=== PATIENT | female | born 1985 | race Asian ===

== ENCOUNTER 2019-01-30 07:26 | Inpatient (IN) ==
[2019-01-30] MEDS ORDERED: OXYTOCIN 30 UNITS/500 ML BAG IV PRN (08:11)
[2019-01-30 08:42] LABS: Hematocrit (blood only) 34.9 % (37-47); Hemoglobin 12.5 g/dL (12.0-16.0); Mean Corpuscular Hemoglobin 33.1 pg (25-34); Mean Corpuscular Volume 92.3 fL (80-100); Mean Platelet Volume 10.4 fL (7.4-10.4); Platelet Count 224 K/uL (130-400); RDW Coefficient of Variation 13.6 % (11.5-14.5); RDW Standard Deviation 45.7 fL (36.4-46.3); Red Blood Count 3.78 M/uL (4.2-5.4); White Blood Count 8.55 K/uL (4.8-10.8)
[2019-01-30 08:43] LABS: Mean Corpuscular Hgb Conc 35.8 g/dL (32-36)
[2019-01-30] MEDS: LACTATED RINGER'S 1,000 ML IV PRN ×3 (08:47→19:49)
[2019-01-30] MEDS: OXYTOCIN 30 UNITS/500 ML BAG IV PRN (08:48)
--- NOTE | 2019-01-30 10:25 | History & Physical Report ---
Date of Service January 30, 2019 Assessment & Plan (1) Supervision of elderly primigravida: 34yo at 40.4 weeks GA. Present for IOL for post dates. 1. Fetus: Cat 1 2. Labor: S/p Jimenez. Will start oxytocin and AROM when able 3. GBS negative 4. Vitals: WNL 5. VSD: Will make peds aware (2) ventricular septal defect affecting antepartum care of mother: History of Present Illness Primary Care Provider: NO PCP 34yo at 40.4 weeks GA. Present for IOL for post dates. Denying regular contractions, VB, or LOF. Good FM. complicated by AMA and small VSD. 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 Beliefs That Will Affect Care: None marital status: Current Living Situation: Spouse Other Information That Helps Us Care for You: No Feels Safe at Home: Yes Safety Concerns: Feels Safe At This Time Smoking Status: Never smoker Hx Alcohol Use: No Hx Substance Use: No Physical Exam Constitutional: WD/WN, vitals as above Gastrointestinal (Abdomen): Percussion/Palpation: abdomen soft; abdomen nontender, no guarding and abdomen not rigid Genitourinary: no vaginal lesions, no adnexal mass normal external appearance OB Exam Abdomen: + vertex Manual OB Exam: + cervical dilation 3 cm, + cervical effacement 70% and + station -2 OB Exam Monitor Tracing: + external FHT monitor used, + external uterine monitor used, + category I and + normal FHT variability; no late decelerations present and no variable decelerations Results & Data Vital Signs (Past 12 Hours) Vital Signs Temp Pulse Resp BP 01/30/19 10:02 66 124/76 01/30/19 07:50 75 136/89 01/30/19 07:36 36.9 C 75 20 136/92 01/30/19 07:34 76 136/92 Code Status & VTE Plan VTE Prophylaxis Plan VTE Prophylaxis will be ordered: Yes
--- NOTE | 2019-01-30 14:28 | Labor Progress Brief Note ---
Date of Service January 30, 2019 Subjective Reason For Note: Routine Evaluation Current Pain Level(1-10): 3 Assessment & Plan (1) Supervision of elderly primigravida: 34yo at 40.4 weeks GA. Present for IOL for post dates. 1. Fetus: Cat 1 2. Labor: S/p Jimenez. Continue oxytocin. s/p AROM 3. GBS negative 4. Vitals: WNL 5. VSD: Will make peds aware (2) ventricular septal defect affecting antepartum care of mother: Physical Exam Genitourinary: Manual OB Exam: + cervical dilation 4 cm, + cervical effacement 70%, + station -2 and + amniotic fluid clear OB Exam Monitor Tracing: + external FHT monitor used, + external uterine monitor used, + category I and + normal FHT variability Results & Data Vital Signs (Past 12 Hours) Vital Signs Temp Pulse Resp BP 01/30/19 13:49 69 20 134/75 01/30/19 12:01 36.8 C 73 20 126/74 01/30/19 11:10 75 20 133/75 01/30/19 10:02 66 20 124/76 01/30/19 07:50 75 136/89 01/30/19 07:36 36.9 C 75 20 136/92 01/30/19 07:34 76 136/92
[2019-01-30] MEDS ORDERED: fentaNYL citrate 100 MCG/2 ML VIAL ONE (15:59)
[2019-01-30] MEDS ORDERED: BUPIVACAINE 0.25% 30 ML VIAL ONE (15:59)
[2019-01-30] MEDS ORDERED: ePHEDrine sulfate 50 MG/ML AMP ONE (15:59)
[2019-01-30] MEDS ORDERED: fentaNYL 2MCG/ML ROPIV 1.25MG/ML 100 ML BAG EPI ONE (16:00)
[2019-01-30] MEDS ORDERED: NALOXONE HCL 1 MG in SODIUM CHLORIDE 0.9% 1000ML 1,000 ML IV PRN (16:00)
[2019-01-30] MEDS ORDERED: ONDANSETRON INJ 2 MG/ML 2 ML VIAL IV PRN (16:00)
[2019-01-30] MEDS ORDERED: DiphenhydrAMINE HCL 50 MG/ML VIAL IV PRN (16:00)
[2019-01-30] MEDS ORDERED: NALOXONE HCL 0.4 MG/1 ML VIAL/CARP IV PRN (16:00)
[2019-01-30] MEDS ORDERED: NALBUPHINE HCL INJ 10 MG/ML AMP IV PRN (16:00)
[2019-01-30] MEDS ORDERED: ePHEDrine sulfate 50 MG/ML AMP IV PRN (16:00)
--- NOTE | 2019-01-30 16:07 | Anesthesiology Consultation ---
Date of Service January 30, 2019 Assessment & Plan (1) Encounter for pre-operative examination: Chart Review Chart Review: Patient NOT seen in Pre Admission Testing and Acceptable Risk for Labor Epidural Consults Requested none History Height/Weight Height: 5 ft 7 in Weight: 76.204 kg Allergies Allergy/AdvReac Type Severity Reaction Status Date / Time No Known Drug Allergies Allergy Unknown Verified 01/30/19 08:06 Medications Home Medications Medication Instructions Recorded Confirmed Last Taken aspirin 81 mg tablet,delayed 81 mg PO DAILY tab 11/21/18 01/30/19 01/27/19 release 1 tab PO DAILY 11/21/18 01/30/19 01/29/19 07:00 vitamin,calcium,oclqmtbl-gmnx-upmlj acid tablet Active Medications Generic Name Dose Route Start Last Admin Trade Name Freq PRN Reason Stop Dose Admin Lactated Ringer's 1,000 mls @ 125 mls/hr 01/30/19 08:11 01/30/19 15:49 Lr IV 02/01/19 08:10 999 mls/hr .Q8H PRN Infusion L&D Protocol Protocol Oxytocin 30 units in 500 mls @ 16 mls/hr 01/30/19 08:11 01/30/19 15:06 Pitocin IV 02/01/19 08:10 0.96 units/hr .Q24H PRN 16 mls/hr Labor Induction/Augmentation Titration Protocol 0.96 UNITS/HR Past Medical History Medical History No known health problems Exercise / Class Metabolic Activity II 4-5 Yardwork/Stairs/Walk up hill Past Family History Family History Mother Hypertension Past Surgical History Surgical History No history of previous surgery Past Anesthesia History No Hx of Anesthesia Complications and No Family Hx of Anesthesia Complications History of PONV No Hx of PONV and No Hx of Motion Sickness Social History Smoking Status: Never smoker Hx Alcohol Use: No Hx Substance Use: No substance use type: does not use Physical Exam Vital Signs Last Vital Signs Temp 36.6 C 01/30/19 15:05 Pulse 68 01/30/19 15:05 Resp 18 01/30/19 15:05 BP 125/84 01/30/19 15:05 Testing Laboratory Results 01/30/19 08:24
[2019-01-30] MEDS: fentaNYL 2MCG/ML ROPIV 1.25MG/ML 100 ML BAG EPI PRN ×2 (16:26→23:26)
--- NOTE | 2019-01-30 17:41 | Labor Progress Brief Note ---
Date of Service January 30, 2019 Subjective Reason For Note: Routine Evaluation Assessment & Plan (1) Supervision of elderly primigravida: 34yo at 40.4 weeks GA. Present for IOL for post dates. 1. Fetus: Cat 1 2. Labor: S/p Jimenez. Continue oxytocin. s/p AROM 3. GBS negative 4. Vitals: WNL 5. VSD: Will make peds aware (2) ventricular septal defect affecting antepartum care of mother: Physical Exam Genitourinary: OB Exam Abdomen: + vertex Manual OB Exam: + cervical dilation 4 cm, + cervical effacement 70%, + station -2 and + amniotic fluid clear OB Exam Monitor Tracing: + external FHT monitor used, + external uterine monitor used, + category I and + normal FHT variability; no late decelerations present and no variable decelerations Results & Data Vital Signs (Past 12 Hours) Vital Signs Temp Pulse Resp BP Pulse Ox 01/30/19 17:37 59 L 98 01/30/19 17:32 69 98 01/30/19 17:31 58 L 16 133/88 01/30/19 17:27 68 97 01/30/19 17:22 71 97 01/30/19 17:17 74 98 01/30/19 17:16 73 130/88 01/30/19 17:12 72 97 01/30/19 17:07 69 97 01/30/19 17:02 71 97 01/30/19 16:57 63 130/77 98 01/30/19 16:52 67 98 01/30/19 16:51 36.8 C 69 16 142/83 H 01/30/19 16:47 71 135/81 98 01/30/19 16:43 70 138/74 01/30/19 16:42 68 98 01/30/19 16:37 60 137/82 98 01/30/19 16:32 68 98 01/30/19 16:31 68 130/73 01/30/19 16:29 64 124/75 01/30/19 16:27 61 119/72 01/30/19 16:26 64 97 01/30/19 16:25 68 128/76 01/30/19 16:23 68 150/83 H 01/30/19 16:21 70 97 01/30/19 16:16 70 96 01/30/19 16:11 75 97 01/30/19 16:06 68 97 01/30/19 15:05 36.6 C 68 18 125/84 01/30/19 13:49 69 20 134/75 01/30/19 12:01 36.8 C 73 20 126/74 01/30/19 11:10 75 20 133/75 01/30/19 10:02 66 20 124/76 01/30/19 07:50 75 136/89 01/30/19 07:36 36.9 C 75 20 136/92 01/30/19 07:34 76 136/92
[2019-01-31] MEDS ORDERED: BUPIVACAINE 0.25% 30 ML VIAL ONE ×2 (03:01→09:45)
[2019-01-31] MEDS: LACTATED RINGER'S 1,000 ML IV PRN ×2 (03:37→10:00)
[2019-01-31] MEDS: fentaNYL 2MCG/ML ROPIV 1.25MG/ML 100 ML BAG EPI PRN (05:06)
--- NOTE | 2019-01-31 07:22 | Labor Progress Brief Note ---
Date of Service January 31, 2019 Subjective Reason For Note: Routine Evaluation Current Pain Level(1-10): 3 Assessment & Plan (1) : 34 yo AMA, here for IOL for Post dates 1. - SVE: 9.5cm, 100%, and +1 - Fetus: reassuring tracing Cat. 1 - Labor: S/P Jimenez. Continue Oxytocin. S/P AROM - GBS: negative - VS: WNL 2. - VSD (2) Supervision of elderly primigravida: 34yo at 40.4 weeks GA. Present for IOL for post dates. 1. Fetus: Cat 1 2. Labor: Progressing, S/p Jimenez. Continue oxytocin. s/p AROM 3. GBS negative 4. Vitals: WNL 5. VSD: Will make peds aware (3) ventricular septal defect affecting antepartum care of mother: Physical Exam Physical Exam: SVE: 9.5 cm. 100%, and +1 Baseline rate 150 accelerations present no late decelerations present and no variable decelerations Results & Data Vital Signs (Past 12 Hours) Vital Signs Temp Pulse Resp BP Pulse Ox 01/31/19 07:17 88 96 01/31/19 07:12 78 98 01/31/19 07:07 84 95 01/31/19 07:06 88 142/78 H 01/31/19 07:02 86 96 01/31/19 07:00 18 01/31/19 06:57 77 95 01/31/19 06:56 80 94 01/31/19 06:52 84 96 01/31/19 06:50 75 116/59 L 01/31/19 06:47 74 95 01/31/19 06:42 87 95 01/31/19 06:37 73 94 01/31/19 06:36 72 94 01/31/19 06:35 74 139/73 01/31/19 06:32 74 95 01/31/19 06:30 78 18 94 01/31/19 06:27 70 95 01/31/19 06:24 75 94 01/31/19 06:22 72 95 01/31/19 06:20 74 125/72 01/31/19 06:18 76 94 01/31/19 06:17 77 95 01/31/19 06:12 69 95 01/31/19 06:07 80 96 01/31/19 06:06 82 132/77 01/31/19 06:02 81 96 01/31/19 06:00 16 01/31/19 05:57 74 95 01/31/19 05:52 73 95 01/31/19 05:50 75 120/69 01/31/19 05:48 79 94 01/31/19 05:47 74 95 01/31/19 05:42 76 95 01/31/19 05:41 75 94 01/31/19 05:37 76 96 01/31/19 05:35 72 126/65 01/31/19 05:32 70 96 01/31/19 05:30 16 01/31/19 05:27 67 96 01/31/19 05:22 74 97 01/31/19 05:21 76 133/65 01/31/19 05:17 72 96 01/31/19 05:12 73 97 01/31/19 05:07 81 97 01/31/19 05:06 79 157/81 H 01/31/19 05:05 37.7 C H 01/31/19 05:02 79 97 01/31/19 05:00 16 01/31/19 04:57 86 96 01/31/19 04:52 78 97 01/31/19 04:51 88 137/85 01/31/19 04:47 85 98 01/31/19 04:42 88 98 01/31/19 04:37 82 98 01/31/19 04:35 86 152/91 H 01/31/19 04:32 87 97 01/31/19 04:30 16 01/31/19 04:27 84 96 01/31/19 04:22 83 96 01/31/19 04:20 80 140/85 01/31/19 04:17 80 96 01/31/19 04:12 82 97 01/31/19 04:07 79 96 01/31/19 04:06 79 139/85 01/31/19 04:02 77 96 01/31/19 04:00 16 01/31/19 03:57 77 96 01/31/19 03:52 77 96 01/31/19 03:50 75 145/82 H 01/31/19 03:47 73 96 01/31/19 03:42 72 97 01/31/19 03:37 77 96 01/31/19 03:35 77 148/89 H 01/31/19 03:32 78 96 01/31/19 03:30 82 18 146/81 H 01/31/19 03:27 71 97 01/31/19 03:24 75 144/79 H 01/31/19 03:22 80 97 01/31/19 03:19 72 141/79 H 01/31/19 03:17 69 98 01/31/19 03:14 71 129/66 01/31/19 03:12 75 98 01/31/19 03:09 66 125/62 01/31/19 03:07 64 97 01/31/19 03:06 37.0 C 01/31/19 03:04 84 143/75 H 01/31/19 03:03 89 94 01/31/19 03:02 78 97 01/31/19 03:01 72 133/70 01/31/19 03:00 20 01/31/19 02:57 69 97 01/31/19 02:52 72 97 01/31/19 02:47 70 124/60 99 01/31/19 02:42 68 98 01/31/19 02:40 62 121/67 01/31/19 02:37 75 98 01/31/19 02:32 76 98 01/31/19 02:31 74 161/91 H 01/31/19 02:30 18 01/31/19 02:27 66 98 01/31/19 02:22 66 98 01/31/19 02:17 82 97 01/31/19 02:16 77 152/76 H 01/31/19 02:12 71 96 01/31/19 02:07 64 96 01/31/19 02:02 63 96 01/31/19 02:01 64 130/66 01/31/19 02:00 18 01/31/19 01:57 70 96 01/31/19 01:52 71 96 01/31/19 01:47 58 L 96 01/31/19 01:46 72 132/72 01/31/19 01:42 67 96 01/31/19 01:37 63 96 01/31/19 01:32 69 98 01/31/19 01:30 66 18 140/77 01/31/19 01:27 67 97 01/31/19 01:22 63 97 01/31/19 01:17 64 99 01/31/19 01:15 70 126/66 01/31/19 01:12 69 97 01/31/19 01:07 36.9 C 74 98 01/31/19 01:02 74 99 01/31/19 01:00 70 16 128/66 01/31/19 00:57 65 99 01/31/19 00:52 78 99 01/31/19 00:47 75 99 01/31/19 00:46 75 127/75 01/31/19 00:42 88 97 01/31/19 00:37 71 97 01/31/19 00:32 73 97 01/31/19 00:31 68 137/82 01/31/19 00:30 16 01/31/19 00:27 75 97 01/31/19 00:22 74 97 01/31/19 00:17 73 98 01/31/19 00:15 63 138/80 01/31/19 00:12 69 97 01/31/19 00:07 76 98 01/31/19 00:05 68 133/87 01/31/19 00:02 67 98 01/31/19 00:00 16 01/30/19 23:57 67 97 01/30/19 23:52 69 98 01/30/19 23:47 69 98 01/30/19 23:46 70 145/86 H 01/30/19 23:42 64 98 01/30/19 23:37 78 98 01/30/19 23:32 68 156/82 H 98 01/30/19 23:30 18 01/30/19 23:27 68 99 01/30/19 23:22 69 98 01/30/19 23:17 62 98 01/30/19 23:16 61 141/79 H 01/30/19 23:12 68 98 01/30/19 23:07 56 L 137/76 99 01/30/19 23:05 36.9 C 01/30/19 23:02 69 99 01/30/19 23:00 62 18 133/69 01/30/19 22:57 62 99 01/30/19 22:52 63 99 01/30/19 22:48 62 129/70 01/30/19 22:47 62 98 01/30/19 22:42 66 97 01/30/19 22:37 59 L 97 01/30/19 22:32 72 97 01/30/19 22:31 60 164/88 H 01/30/19 22:30 18 01/30/19 22:27 70 98 01/30/19 22:22 73 99 01/30/19 22:17 81 98 01/30/19 22:16 86 112/84 01/30/19 22:12 80 97 01/30/19 22:07 81 98 01/30/19 22:02 72 97 01/30/19 22:01 73 138/89 01/30/19 22:00 20 01/30/19 21:57 65 99 01/30/19 21:52 79 97 01/30/19 21:47 71 98 01/30/19 21:46 79 156/84 H 01/30/19 21:42 79 98 01/30/19 21:37 78 98 01/30/19 21:32 85 97 01/30/19 21:30 65 18 144/89 H 01/30/19 21:27 71 98 01/30/19 21:22 71 99 01/30/19 21:17 73 139/87 97 01/30/19 21:12 63 98 01/30/19 21:10 36.6 C 01/30/19 21:07 68 97 01/30/19 21:02 65 97 01/30/19 21:00 62 18 135/74 01/30/19 20:57 62 97 01/30/19 20:52 62 98 01/30/19 20:47 73 98 01/30/19 20:46 66 123/70 01/30/19 20:42 65 98 01/30/19 20:37 61 99 01/30/19 20:32 61 98 01/30/19 20:31 63 123/78 01/30/19 20:30 20 01/30/19 20:27 56 L 99 01/30/19 20:22 65 98 01/30/19 20:17 64 98 01/30/19 20:16 66 144/83 H 01/30/19 20:12 68 98 01/30/19 20:07 65 98 01/30/19 20:02 64 149/73 H 98 01/30/19 20:00 20 01/30/19 19:57 66 99 01/30/19 19:52 68 98 01/30/19 19:47 73 121/80 98 01/30/19 19:42 67 97 01/30/19 19:37 69 99 01/30/19 19:32 75 99 01/30/19 19:31 67 136/81 01/30/19 19:30 18 01/30/19 19:27 68 98 01/30/19 19:22 75 97
--- NOTE | 2019-01-31 10:28 | Anesthesiology Progress Note ---
Date of Service January 31, 2019 at 10:24 am, pt epidural was bolused w/12 ml 0.17% bupivacaine + 100 mcgs fentanyl; using incremental aspiration and injection. neg. aspiration.vital signs stable. Physical Exam Vital Signs: Last Vital Signs Temp 37.6 C H 01/31/19 09:03 Pulse 85 01/31/19 10:22 Resp 16 01/31/19 09:45 BP 122/58 L 01/31/19 10:20 Pulse Ox 95 01/31/19 10:22 Results & Data Medications Administered Lactated Ringer's (Lr) 1,000 mls @ 125 mls/hr IV .Q8H PRN; Protocol PRN Reason: L&D Protocol Stop: 02/01/19 08:10 Last Infusion: 01/31/19 08:05 Dose: 125 mls/hr Documented by: [id number] Infusion: 01/31/19 07:50 Dose: 999 mls/hr Documented by: [id number] Admin: 01/31/19 03:37 Dose: 125 mls/hr Documented by: [id number] Infusion: 01/31/19 03:37 Dose: 125 mls/hr Documented by: [id number] Admin: 01/30/19 19:49 Dose: 125 mls/hr Documented by: [id number] Infusion: 01/30/19 19:03 Dose: 125 mls/hr Documented by: [id number] Infusion: 01/30/19 18:40 Dose: 125 mls/hr Documented by: [id number] Infusion: 01/30/19 16:30 Dose: 125 mls/hr Documented by: [id number] Infusion: 01/30/19 15:49 Dose: 999 mls/hr Documented by: [id number] Admin: 01/30/19 15:49 Dose: 125 mls/hr Documented by: [id number] Infusion: 01/30/19 15:49 Dose: 125 mls/hr Documented by: [id number] Admin: 01/30/19 08:47 Dose: 125 mls/hr Documented by: [id number] Oxytocin (Pitocin) 30 units in 500 mls @ 2 mls/hr IV .Q24H PRN; Protocol PRN Reason: Labor Induction/Augmentation Stop: 02/01/19 08:10 Last Titration: 01/31/19 08:33 Dose: 0.12 units/hr, 2 mls/hr Documented by: [id number] Titration: 01/31/19 07:50 Dose: 0 units/hr, 0 mls/hr Documented by: [id number] Titration: 01/31/19 00:40 Dose: 1.8 units/hr, 30 mls/hr Documented by: [id number] Titration: 01/31/19 00:05 Dose: 1.68 units/hr, 28 mls/hr Documented by: [id number] Titration: 01/30/19 23:20 Dose: 1.56 units/hr, 26 mls/hr Documented by: [id number] Titration: 01/30/19 22:35 Dose: 1.44 units/hr, 24 mls/hr Documented by: [id number] Titration: 01/30/19 22:00 Dose: 1.32 units/hr, 22 mls/hr Documented by: [id number] Titration: 01/30/19 18:35 Dose: 1.2 units/hr, 20 mls/hr Documented by: [id number] Titration: 01/30/19 18:04 Dose: 1.08 units/hr, 18 mls/hr Documented by: [id number] Titration: 01/30/19 15:06 Dose: 0.96 units/hr, 16 mls/hr Documented by: [id number] Titration: 01/30/19 13:00 Dose: 0.84 units/hr, 14 mls/hr Documented by: [id number] Titration: 01/30/19 12:00 Dose: 0.72 units/hr, 12 mls/hr Documented by: [id number] Titration: 01/30/19 11:00 Dose: 0.6 units/hr, 10 mls/hr Documented by: [id number] Titration: 01/30/19 10:30 Dose: 0.48 units/hr, 8 mls/hr Documented by: [id number] Titration: 01/30/19 10:00 Dose: 0.36 units/hr, 6 mls/hr Documented by: [id number] Titration: 01/30/19 09:30 Dose: 0.24 units/hr, 4 mls/hr Documented by: [id number] Admin: 01/30/19 08:48 Dose: 0.12 units/hr, 2 mls/hr Documented by: [id number] Cosigned by: [id number] Ropivacaine (Epidural (L&D)) 100 ml EPI PRN PRN; Protocol PRN Reason: Pain R/T Labor Stop: 01/31/19 15:59 Last Admin: 01/31/19 05:06 Dose: 100 ml Documented by: [id number] Cosigned by: [id number] Admin: 01/30/19 23:26 Dose: 100 ml Documented by: [id number] Cosigned by: [id number] Admin: 01/30/19 16:26 Dose: 100 ml Documented by: [id number] Cosigned by: [id number]
[2019-01-31] MEDS: fentaNYL citrate 100 MCG/2 ML VIAL ONE ×2 (10:30→10:34)
--- NOTE | 2019-01-31 14:39 | Obstetrical Progress Note ---
Date of Service January 31, 2019 Subjective Patient has been pushing since approx 1pm. She took some time to learn to adequately push. at bedside and helpful. FHT Cat 1 [place] 2-3 station 2+ Continue pushing. Results & Data Vital Signs (Past 12 Hours) Vital Signs Temp Pulse Resp BP Pulse Ox 01/31/19 14:24 37.1 C 22 01/31/19 14:20 112 H 117/57 L 01/31/19 14:10 96 H 89 L 01/31/19 14:09 115 H 86 L 01/31/19 14:05 104 H 120/56 L 94 01/31/19 14:00 113 H 85 L 01/31/19 13:59 115 H 94 01/31/19 13:54 92 H 92 01/31/19 13:51 90 128/64 01/31/19 13:48 81 92 01/31/19 13:43 91 H 90 01/31/19 13:42 136 H 90 01/31/19 13:38 96 H 93 01/31/19 13:37 79 91 01/31/19 13:35 88 135/61 01/31/19 13:33 91 H 94 01/31/19 13:28 95 H 93 01/31/19 13:27 71 90 01/31/19 13:23 99 H 92 01/31/19 13:21 80 137/60 01/31/19 13:19 78 86 L 01/31/19 13:17 74 95 01/31/19 13:14 70 72 L 01/31/19 13:12 77 97 01/31/19 13:07 92 H 95 01/31/19 13:06 83 87 L 01/31/19 13:02 88 97 01/31/19 12:57 90 95 01/31/19 12:56 91 H 89 L 01/31/19 12:52 81 137/65 96 01/31/19 12:47 79 96 01/31/19 12:42 84 95 01/31/19 12:37 76 95 01/31/19 12:36 76 127/60 01/31/19 12:32 78 96 01/31/19 12:30 37.4 C 18 01/31/19 12:27 76 95 01/31/19 12:22 93 H 95 01/31/19 12:20 81 135/70 10/09/19 12:17 99 H 96 01/31/19 12:12 87 95 01/31/19 12:07 83 95 01/31/19 12:05 83 124/65 01/31/19 12:02 79 95 01/31/19 11:57 76 95 01/31/19 11:52 73 96 01/31/19 11:50 73 124/64 01/31/19 11:47 73 95 01/31/19 11:42 78 96 01/31/19 11:37 83 96 01/31/19 11:36 37.7 C H 18 01/31/19 11:35 79 131/71 01/31/19 11:32 76 94 01/31/19 11:27 75 95 01/31/19 11:22 74 94 01/31/19 11:21 68 126/62 01/31/19 11:17 72 97 01/31/19 11:12 72 95 01/31/19 11:07 67 96 01/31/19 11:05 64 121/60 01/31/19 11:02 70 95 01/31/19 10:57 77 93 01/31/19 10:52 74 95 01/31/19 10:50 74 132/64 01/31/19 10:47 73 95 01/31/19 10:42 81 95 01/31/19 10:37 74 132/62 94 01/31/19 10:32 80 94 01/31/19 10:27 79 94 01/31/19 10:22 85 95 01/31/19 10:20 79 122/58 L 01/31/19 10:17 77 95 01/31/19 10:12 80 94 01/31/19 10:07 84 94 01/31/19 10:05 83 124/62 01/31/19 10:02 82 94 01/31/19 09:57 81 94 01/31/19 09:52 81 94 01/31/19 09:50 77 122/61 01/31/19 09:47 81 94 01/31/19 09:45 16 01/31/19 09:42 82 95 01/31/19 09:37 80 95 01/31/19 09:36 79 94 01/31/19 09:35 76 116/59 L 01/31/19 09:32 79 96 01/31/19 09:27 75 95 01/31/19 09:22 77 95 01/31/19 09:21 76 113/58 L 01/31/19 09:17 75 95 01/31/19 09:12 79 96 01/31/19 09:07 78 95 01/31/19 09:06 78 119/63 01/31/19 09:03 37.6 C H 20 01/31/19 09:02 78 96 01/31/19 08:57 84 96 01/31/19 08:52 85 96 01/31/19 08:51 83 145/78 H 01/31/19 08:47 80 96 01/31/19 08:42 84 96 01/31/19 08:37 84 97 01/31/19 08:35 76 129/76 01/31/19 08:33 20 01/31/19 08:32 88 96 01/31/19 08:27 80 96 01/31/19 08:22 84 95 01/31/19 08:20 81 134/75 01/31/19 08:17 80 96 01/31/19 08:12 81 96 01/31/19 08:07 78 97 01/31/19 08:05 76 127/74 01/31/19 08:02 82 98 01/31/19 07:57 79 99 01/31/19 07:52 77 99 01/31/19 07:51 78 131/85 01/31/19 07:47 75 96 01/31/19 07:45 84 92 01/31/19 07:42 75 95 01/31/19 07:37 77 96 01/31/19 07:35 79 123/68 01/31/19 07:32 75 96 01/31/19 07:30 83 94 01/31/19 07:27 84 96 01/31/19 07:22 83 96 01/31/19 07:20 88 135/77 01/31/19 07:17 88 96 01/31/19 07:12 78 98 01/31/19 07:07 84 95 01/31/19 07:06 88 142/78 H 01/31/19 07:02 86 96 01/31/19 07:00 18 01/31/19 06:57 77 95 01/31/19 06:56 80 94 01/31/19 06:52 84 96 01/31/19 06:50 75 116/59 L 01/31/19 06:47 74 95 01/31/19 06:42 87 95 01/31/19 06:37 73 94 01/31/19 06:36 72 94 01/31/19 06:35 74 139/73 01/31/19 06:32 74 95 01/31/19 06:30 78 18 94 01/31/19 06:27 70 95 01/31/19 06:24 75 94 01/31/19 06:22 72 95 01/31/19 06:20 74 125/72 01/31/19 06:18 76 94 01/31/19 06:17 77 95 01/31/19 06:12 69 95 01/31/19 06:07 80 96 01/31/19 06:06 82 132/77 01/31/19 06:02 81 96 01/31/19 06:00 16 01/31/19 05:57 74 95 01/31/19 05:52 73 95 01/31/19 05:50 75 120/69 01/31/19 05:48 79 94 01/31/19 05:47 74 95 01/31/19 05:42 76 95 01/31/19 05:41 75 94 01/31/19 05:37 76 96 01/31/19 05:35 72 126/65 01/31/19 05:32 70 96 01/31/19 05:30 16 01/31/19 05:27 67 96 01/31/19 05:22 74 97 01/31/19 05:21 76 133/65 01/31/19 05:17 72 96 01/31/19 05:12 73 97 01/31/19 05:07 81 97 01/31/19 05:06 79 157/81 H 01/31/19 05:05 37.7 C H 01/31/19 05:02 79 97 01/31/19 05:00 16 01/31/19 04:57 86 96 01/31/19 04:52 78 97 01/31/19 04:51 88 137/85 01/31/19 04:47 85 98 01/31/19 04:42 88 98 01/31/19 04:37 82 98 01/31/19 04:35 86 152/91 H 01/31/19 04:32 87 97 01/31/19 04:30 16 01/31/19 04:27 84 96 01/31/19 04:22 83 96 01/31/19 04:20 80 140/85 01/31/19 04:17 80 96 01/31/19 04:12 82 97 01/31/19 04:07 79 96 01/31/19 04:06 79 139/85 01/31/19 04:02 77 96 01/31/19 04:00 16 01/31/19 03:57 77 96 01/31/19 03:52 77 96 01/31/19 03:50 75 145/82 H 01/31/19 03:47 73 96 01/31/19 03:42 72 97 01/31/19 03:37 77 96 01/31/19 03:35 77 148/89 H 01/31/19 03:32 78 96 01/31/19 03:30 82 18 146/81 H 01/31/19 03:27 71 97 01/31/19 03:24 75 144/79 H 01/31/19 03:22 80 97 01/31/19 03:19 72 141/79 H 01/31/19 03:17 69 98 01/31/19 03:14 71 129/66 01/31/19 03:12 75 98 01/31/19 03:09 66 125/62 01/31/19 03:07 64 97 01/31/19 03:06 37.0 C 01/31/19 03:04 84 143/75 H 01/31/19 03:03 89 94 01/31/19 03:02 78 97 01/31/19 03:01 72 133/70 01/31/19 03:00 20 01/31/19 02:57 69 97 01/31/19 02:52 72 97 01/31/19 02:47 70 124/60 99 01/31/19 02:42 68 98 01/31/19 02:40 62 121/67 PG Care Time/CCT Total # of Minutes Spent Total Time Spent with Patient: Total time spent is greater than 50% in coordination of care (as documented) at patient's floor/unit and/or counseling patient:
[2019-01-31] MEDS: OXYTOCIN 30 UNITS/500 ML BAG IV PRN (15:19)
[2019-01-31] MEDS: METHYLERGONOVINE MALEATE 0.2 MG/ML AMP IM PRN ×2 (16:39→17:55)
[2019-01-31] MEDS ORDERED: TRANEXAMIC ACID 100 MG/ML 10 ML VIAL ONE ×2 (16:42→17:43)
[2019-01-31] MEDS ORDERED: SODIUM CHLORIDE 0.9% 250 ML IV PRN (16:42)
[2019-01-31] MEDS ORDERED: CARBOPROST TROMETHAMINE 250 MCG/ML AMPUL ONE (16:42)
[2019-01-31] MEDS ORDERED: miSOPROStoL 200 MCG TAB PR ONE (16:48)
[2019-01-31] MEDS ORDERED: TRANEXAMIC ACID 1,000 MG in 0.9 % SODIUM CHLORIDE 100 ML IV STA ×2 (16:48→17:41)
[2019-01-31] MEDS ORDERED: CARBOPROST TROMETHAMINE 250 MCG/ML AMPUL IM PRN (16:48)
[2019-01-31] MEDS ORDERED: fentaNYL 2MCG/ML ROPIV 1.25MG/ML 100 ML BAG EPI ONE (17:05)
[2019-01-31 17:36] LABS: Partial Thromboplastin Ratio 1.2; Prothrombin Time 10.5 Seconds (9.0-12.0)
[2019-01-31] MEDS ORDERED: METHYLERGONOVINE MALEATE 0.2 MG/ML AMP IM STA (17:42)
[2019-01-31] MEDS ORDERED: TRANEXAMIC ACID 1,000 MG in 0.9 % SODIUM CHLORIDE 100 ML IV ONE (17:42)
--- NOTE | 2019-01-31 17:51 | Delivery Summary ---
Vaginal Delivery Summary Date of Service January 31, 2019 Vaginal Delivery Summary Vaginal Delivery Summary: Pre-delivery diagnoses: 34yo @ 40 5/7, VSD, IOL for post dates Post-delivery diagnoses: same + severe hemorrhage, manual extraction of placenta Procedure: spontaneous vaginal delivery, manual extraction of placenta, insertion of Bakri balloon, repair of 2nd degree perineal laceration Surgeon: Anais Colin DO Complications: none Findings: Viable male . Apgars: 8/9. Weight pending, please see nursery records. Estimated blood loss: 2765ml as measured by weight Description of delivery: The patient progressed to complete with epidural anesthesia. She then began to push. She pushed for 3 hours. She spontaneously vaginally delivered a viable from the cephalic presentation. The head delivered in AMY position. The anterior shoulder delivered, followed by the posterior shoulder, followed by the body. No nuchal cord. The baby was placed on mother's abdomen and a spontaneous cry was heard. The cord was doubly clamped and cut. A segment was retained for cord gases. Cord blood was obtained. Gentle traction was used to attempt to deliver the placenta, but umbilical cord avulsed. Manual extraction of placenta was performed. This required multiple attempts, as placenta was adhered to the uterine wall. Placenta was gently teased out of the uterus and sent to path. Large banjo curette was used to perform gentle curettage of the uterus, no tissue retrieved. The uterus was swept manually with bushing and broach operator's hand, and no retained placental fragments were palpated. The vagina was swept of clots and debris. IV pitocin was given at 999ml/hr. A large amount of clots were expressed from the uterus and swept from the vagina. The uterus was boggy and atonic, therefore methergine, hemabate, and cytotec were given. The uterus began to firm, but was still bleeding. Therefore, Bakri balloon was inserted into the uterus, and filled with 500ml sterile saline. Collection bag was attached to the bakri balloon to monitor blood loss. Unmatched blood was ordered STAT, also cryo, as well as stat labs: coags, fibrinogen, CBC, CMP. Anesthesia and another OBGYN physician were called to bedside due to severity of case. The cervix, vagina, and perineum were inspected and a 2nd degree laceration was noted and repaired with 3-0 vicryl in standard fashion. After placement of Bakri balloon and repair of (minimally oozing) 2nd degree perineal lac, there was excellent hemostasis. Jimenez catheter was placed in the bladder to monitor urine output. A 2nd IV line was established. Baby was taken to the nursery with father. Sponge, needle and instrument counts were correct x 2. UPDATE: At approx 1.5 h after delivery, there is scant blood on the pad underneath patient. There is 75cc blood in the Bakri balloon collection bag. The fundus is firm. Patient is feeling weak. Have ordered 2u PRBC, 2u cryo, and have given 2 doses of TXA. 2 doses methergine. 1 dose hemabate. 1 dose 1000ml cytotec [place]. DO MILTON ChowdhuryG
[2019-01-31 17:52] LABS: Alanine Aminotransferase < 6 U/L (12-78); Albumin Level 2.1 gm/dl (3.4-5.0); Aspartate Aminotransferase 24 U/L (15-37); BUN Creatinine Ratio 11.7 (10-20); Blood Urea Nitrogen 15 mg/dl (7-18); Calcium 8.1 mg/dl (8.5-10.1); Carbon Dioxide 17 mmol/L (21-32); Chloride 110 mmol/L (98-107); Creatinine Clr Calc Pharmacy 67.4 ml/min; Est GFR (African American) 65.2; Est GFR (Non-African American) 56.2; Glucose 91 mg/dl (70-99); Potassium 3.7 mmol/L (3.5-5.1); Sodium 138 mmol/L (136-145)
[2019-01-31 17:55] LABS: Albumin Globulin Ratio 0.7 (0.9-2); Alkaline Phosphatase 173 U/L (45-117); Bilirubin,Total 0.8 mg/dl (0.2-1); Globulin 3.2 gm/dl (2.5-4.0); Hemoglobin 10.1 g/dL (12.0-16.0); Mean Corpuscular Hemoglobin 31.9 pg (25-34); Mean Corpuscular Hgb Conc 33.7 g/dL (32-36); Mean Corpuscular Volume 94.6 fL (80-100); Mean Platelet Volume 10.5 fL (7.4-10.4); Platelet Count 179 K/uL (130-400); RDW Coefficient of Variation 13.6 % (11.5-14.5); RDW Standard Deviation 47.2 fL (36.4-46.3); Red Blood Count 3.17 M/uL (4.2-5.4); Total Protein 5.3 gm/dl (6.4-8.2); White Blood Count 24.34 K/uL (4.8-10.8)
[2019-01-31 18:06] LABS: Fibrinogen 451 mg/dl (184-400)
[2019-01-31 18:09] LABS: D Dimer > 35200 ug/L FEU (0-500)
[2019-01-31 18:26] LABS: Hematocrit (blood only) 29.4 % (37-47); Hemoglobin 9.7 g/dL (12.0-16.0); Mean Corpuscular Hemoglobin 32.1 pg (25-34); Mean Corpuscular Volume 97.4 fL (80-100); Mean Platelet Volume 10.4 fL (7.4-10.4); Platelet Count 167 K/uL (130-400); RDW Coefficient of Variation 13.9 % (11.5-14.5); Red Blood Count 3.02 M/uL (4.2-5.4); White Blood Count 28.71 K/uL (4.8-10.8)
--- NOTE | 2019-01-31 18:35 | Obstetrical Progress Note ---
Date of Service January 31, [address] Bernal (ice seller) to transfer patient to ICU. She currently has 100cc of red blood in Bakri balloon collection bag. Uterine fundus firm. Scant blood on pad underneath patient. Small amount of dark colored urine in dukes bag. Vital Signs Temp 36.6 C 01/31/19 18:23 Pulse 67 01/31/19 18:31 Resp 22 01/31/19 18:23 BP 99/70 L 01/31/19 18:31 Pulse Ox 100 01/31/19 18:28 Intake & Output 01/30/19 01/31/19 01/31/19 18:59 06:59 18:59 Intake Total 1951.217 / 3107.733 1156.516 / 3107.733 1984.017 / 1984.017 Output Total 1350 / 3600 2250 / 3600 700 / 700 Balance 601.217 / -492.267 -1093.484 / -920.877 4442.017 / 1285.017 Weight 168 lb Intake: IV 195.217 / 3107.733 1156.516 / 3107.733 1861.017 / 1861.017 Lr 1,000 ml @ 125 mls/hr IV . 1832.650 / 2854.167 1021.517 / 2854.167 1614.583 / 1614.583 Q8H PRN Rx#:[id number] PITOCIN 30 units In 500 ml @ 0. 118.567 / 253.566 134.999 / 253.566 246.434 / 246.434 72 UNITS/HR 12 mls/hr IV .Q24H PRN Rx#:[id number] Intake (Blood Product) Amt 124 / 124 Cryoprecipitate Unit 124 / 124 [id number] Packed Cells, Leukoreduced 2 0 / 0 Unit [id number] Output: Urine 1350 / 1350 Urine Amount (Catheter) 2250 / 2250 700 / 700 Straight 2250 / 2250 700 / 700 Labs 01/30/19 01/30/19 01/31/19 08:24 08:24 17:12 WBC 8.55 24.34 H RBC 3.78 L 3.17 L Hgb 12.5 10.1 L Hct 34.9 L 30.0 L MCV 92.3 94.6 MCH 33.1 31.9 MCHC 35.8 33.7 RDW Std Deviation 45.7 47.2 H RDW Coeff of Tanna 13.6 13.6 Plt Count 224 179 MPV 10.4 10.5 H PT INR APTT PTT Ratio Fibrinogen D-Dimer Sodium Potassium Chloride Carbon Dioxide Anion Gap BUN Creatinine Est Cr Clr Drug Dosing Est GFR ( Amer) Est GFR (Non-Af Amer) BUN/Creatinine Ratio Glucose Calcium Total Bilirubin AST ALT Alkaline Phosphatase Lactate Dehydrogenase Total Protein Albumin Globulin Albumin/Globulin Ratio Blood Type B Positive Antibody Screen NEGATIVE Crossmatch See Detail 01/31/19 01/31/19 01/31/19 17:12 17:12 17:12 WBC RBC Hgb Hct MCV MCH MCHC RDW Std Deviation RDW Coeff of Tanna Plt Count MPV PT 10.5 INR 1.0 APTT 33.0 H PTT Ratio 1.2 Fibrinogen 451 H D-Dimer > 80110 H* Sodium Potassium Chloride Carbon Dioxide Anion Gap BUN Creatinine Est Cr Clr Drug Dosing Est GFR ( Amer) Est GFR (Non-Af Amer) BUN/Creatinine Ratio Glucose Calcium Total Bilirubin AST ALT Alkaline Phosphatase Lactate Dehydrogenase 268 H Total Protein Albumin Globulin Albumin/Globulin Ratio Blood Type Antibody Screen Crossmatch 01/31/19 01/31/19 17:12 18:18 WBC 28.71 H RBC 3.02 L Hgb 9.7 L Hct 29.4 L MCV 97.4 MCH 32.1 MCHC 33.0 RDW Std Deviation 49.0 H RDW Coeff of Tanna 13.9 Plt Count 167 MPV 10.4 PT INR APTT PTT Ratio Fibrinogen D-Dimer Sodium 138 Potassium 3.7 Chloride 110 H Carbon Dioxide 17 L Anion Gap 11.0 BUN 15 Creatinine 1.24 H Est Cr Clr Drug Dosing 67.4 Est GFR ( Amer) 65.2 Est GFR (Non-Af Amer) 56.2 BUN/Creatinine Ratio 11.7 Glucose 91 Calcium 8.1 L Total Bilirubin 0.8 AST 24 ALT < 6 L Alkaline Phosphatase 173 H Lactate Dehydrogenase Total Protein 5.3 L Albumin 2.1 L Globulin 3.2 Albumin/Globulin Ratio 0.7 L Blood Type Antibody Screen Crossmatch Results & Data Vital Signs (Past 12 Hours) Vital Signs Temp Pulse Resp BP Pulse Ox 01/31/19 18:28 140 H 100 01/31/19 18:23 36.6 C 147 H 22 93/62 L 100 01/31/19 18:21 148 H 93/62 L 01/31/19 18:18 154 H 100 01/31/19 18:13 152 H 100 01/31/19 18:12 36.8 C 153 H 22 100/60 100 01/31/19 18:08 151 H 100 01/31/19 18:03 155 H 79 L 01/31/19 18:00 155 H 22 100/60 100 01/31/19 17:58 157 H 100 01/31/19 17:55 149 H 83 L 01/31/19 17:53 151 H 97 01/31/19 17:50 36.6 C 120 H 24 120/72 99 01/31/19 17:48 150 H 97 01/31/19 17:46 149 H 85 L 01/31/19 17:45 36.8 C 120 H 22 94/60 L 97 01/31/19 17:43 143 H 97 01/31/19 17:38 145 H 99 01/31/19 17:36 127 H 169/112 H 01/31/19 17:31 36.6 C 133 H 22 139/74 01/31/19 17:30 36.6 C 01/31/19 17:27 151 H 240/122 H 01/31/19 17:25 220/159 H 01/31/19 17:18 134 H 106/74 01/31/19 17:13 117 H 106/69 01/31/19 17:11 114 H 107/71 01/31/19 17:03 100 H 103/60 01/31/19 16:58 105/68 01/31/19 16:53 114 H 96/68 L 01/31/19 16:50 116 H 91/66 L 01/31/19 16:48 130 H 89/52 L 01/31/19 16:35 126 H 127/92 01/31/19 16:21 112 H 131/89 01/31/19 16:08 107 H 134/78 01/31/19 15:53 99 H 159/87 H 01/31/19 15:35 37.0 C 22 01/31/19 15:20 90 143/66 H 01/31/19 15:07 84 138/63 01/31/19 14:51 86 139/68 01/31/19 14:24 37.1 C 22 01/31/19 14:20 112 H 117/57 L 01/31/19 14:10 96 H 89 L 01/31/19 14:09 115 H 86 L 01/31/19 14:05 104 H 120/56 L 94 01/31/19 14:00 113 H 85 L 01/31/19 13:59 115 H 94 01/31/19 13:54 92 H 92 01/31/19 13:51 90 128/64 01/31/19 13:48 81 92 01/31/19 13:43 91 H 90 01/31/19 13:42 136 H 90 01/31/19 13:38 96 H 93 01/31/19 13:37 79 91 01/31/19 13:35 88 135/61 01/31/19 13:33 91 H 94 01/31/19 13:28 95 H 93 01/31/19 13:27 71 90 01/31/19 13:23 99 H 92 01/31/19 13:21 80 137/60 01/31/19 13:19 78 86 L 01/31/19 13:17 74 95 01/31/19 13:14 70 72 L 01/31/19 13:12 77 97 01/31/19 13:07 92 H 95 01/31/19 13:06 83 87 L 01/31/19 13:02 88 97 01/31/19 12:57 90 95 01/31/19 12:56 91 H 89 L 01/31/19 12:52 81 137/65 96 01/31/19 12:47 79 96 01/31/19 12:42 84 95 01/31/19 12:37 76 95 01/31/19 12:36 76 127/60 01/31/19 12:32 78 96 01/31/19 12:30 37.4 C 18 01/31/19 12:27 76 95 01/31/19 12:22 93 H 95 01/31/19 12:20 81 135/70 01/31/19 12:17 99 H 96 01/31/19 12:12 87 95 01/31/19 12:07 83 95 01/31/19 12:05 83 124/65 01/31/19 12:02 79 95 01/31/19 11:57 76 95 01/31/19 11:52 73 96 01/31/19 11:50 73 124/64 01/31/19 11:47 73 95 01/31/19 11:42 78 96 01/31/19 11:37 83 96 01/31/19 11:36 37.7 C H 18 01/31/19 11:35 79 131/71 01/31/19 11:32 76 94 01/31/19 11:27 75 95 01/31/19 11:22 74 94 01/31/19 11:21 68 126/62 01/31/19 11:17 72 97 01/31/19 11:12 72 95 01/31/19 11:07 67 96 01/31/19 11:05 64 121/60 01/31/19 11:02 70 95 01/31/19 10:57 77 93 01/31/19 10:52 74 95 01/31/19 10:50 74 132/64 01/31/19 10:47 73 95 01/31/19 10:42 81 95 01/31/19 10:37 74 132/62 94 01/31/19 10:32 80 94 01/31/19 10:27 79 94 01/31/19 10:22 85 95 01/31/19 10:20 79 122/58 L 01/31/19 10:17 77 95 01/31/19 10:12 80 94 01/31/19 10:07 84 94 01/31/19 10:05 83 124/62 01/31/19 10:02 82 94 01/31/19 09:57 81 94 01/31/19 09:52 81 94 01/31/19 09:50 77 122/61 01/31/19 09:47 81 94 01/31/19 09:45 16 01/31/19 09:42 82 95 01/31/19 09:37 80 95 01/31/19 09:36 79 94 01/31/19 09:35 76 116/59 L 01/31/19 09:32 79 96 01/31/19 09:27 75 95 01/31/19 09:22 77 95 01/31/19 09:21 76 113/58 L 01/31/19 09:17 75 95 01/31/19 09:12 79 96 01/31/19 09:07 78 95 01/31/19 09:06 78 119/63 01/31/19 09:03 37.6 C H 20 01/31/19 09:02 78 96 01/31/19 08:57 84 96 01/31/19 08:52 85 96 01/31/19 08:51 83 145/78 H 01/31/19 08:47 80 96 01/31/19 08:42 84 96 01/31/19 08:37 84 97 01/31/19 08:35 76 129/76 01/31/19 08:33 20 01/31/19 08:32 88 96 01/31/19 08:27 80 96 01/31/19 08:22 84 95 01/31/19 08:20 81 134/75 01/31/19 08:17 80 96 01/31/19 08:12 81 96 01/31/19 08:07 78 97 01/31/19 08:05 76 127/74 01/31/19 08:02 82 98 01/31/19 07:57 79 99 01/31/19 07:52 77 99 01/31/19 07:51 78 131/85 01/31/19 07:47 75 96 01/31/19 07:45 84 92 01/31/19 07:42 75 95 01/31/19 07:37 77 96 01/31/19 07:35 79 123/68 01/31/19 07:32 75 96 01/31/19 07:30 83 94 01/31/19 07:27 84 96 01/31/19 07:22 83 96 01/31/19 07:20 88 135/77 01/31/19 07:17 88 96 01/31/19 07:12 78 98 01/31/19 07:07 84 95 01/31/19 07:06 88 142/78 H 01/31/19 07:02 86 96 01/31/19 07:00 18 01/31/19 06:57 77 95 01/31/19 06:56 80 94 01/31/19 06:52 84 96 01/31/19 06:50 75 116/59 L 01/31/19 06:47 74 95 01/31/19 06:42 87 95 01/31/19 06:37 73 94 01/31/19 06:36 72 94 01/31/19 06:35 74 139/73 01/31/19 06:32 74 95 PG Care Time/CCT Total # of Minutes Spent Total Time Spent with Patient: Total time spent is greater than 50% in coordination of care (as documented) at patient's floor/unit and/or counseling patient:
[2019-01-31 18:39] LABS: Fibrinogen 363 mg/dl (184-400); INR 1.1 (0.9-1.1); Partial Thromboplastin Ratio 1.4; Partial Thromboplastin Time 38.1 Seconds (21.0-31.0); Prothrombin Time 11.2 Seconds (9.0-12.0)
[2019-01-31 18:53] LABS: Alanine Aminotransferase < 6 U/L (12-78); Albumin Globulin Ratio 0.8 (0.9-2); Albumin Level 1.6 gm/dl (3.4-5.0); Alkaline Phosphatase 131 U/L (45-117); Aspartate Aminotransferase 22 U/L (15-37); BUN Creatinine Ratio 9.5 (10-20); Bilirubin,Total 0.5 mg/dl (0.2-1); Blood Urea Nitrogen 12 mg/dl (7-18); Calcium 6.6 mg/dl (8.5-10.1); Carbon Dioxide 9 mmol/L (21-32); Chloride 118 mmol/L (98-107); Creatinine Clr Calc Pharmacy 64.3 ml/min; Est GFR (African American) 61.6; Est GFR (Non-African American) 53.1; Globulin 2.1 gm/dl (2.5-4.0); Glucose 105 mg/dl (70-99); Potassium 3.5 mmol/L (3.5-5.1); Sodium 144 mmol/L (136-145); Total Protein 3.7 gm/dl (6.4-8.2)
[2019-01-31] MEDS: OXYTOCIN 20 UNITS in LACTATED RINGER'S 1,000 ML IV SCH (18:57)
[2019-01-31] MEDS ORDERED: ACETAMINOPHEN 500 MG TAB PO STA (19:21)
[2019-01-31] MEDS ORDERED: ACETAMINOPHEN 500 MG TAB ONE (19:22)
[2019-01-31] MEDS ORDERED: ICU PROTOCOL FOR HYPERGLYCEMIA PRN (20:11)
[2019-01-31] MEDS ORDERED: miSOPROStoL 200 MCG TAB ONE (20:28)
[2019-01-31 20:42] LABS: HCO3 VBG 18 mmol/L; PCO2 VBG 27 mmHg (38-50); PO2 VBG 25 mmHg; pH VBG 7.44 (7.36-7.41)
[2019-01-31 20:43] LABS: Oxygen Saturation VBG < 60.0 %
[2019-01-31] MEDS: NORMOSOL-R 1,000 ML IV SCH (20:45)
[2019-01-31 20:59] LABS: INR 1.1 (0.9-1.1); Partial Thromboplastin Ratio 1.2; Partial Thromboplastin Time 32.1 Seconds (21.0-31.0); Prothrombin Time 11.1 Seconds (9.0-12.0)
[2019-01-31 21:02] LABS: Hematocrit (blood only) 30.8 % (37-47); Hemoglobin 10.5 g/dL (12.0-16.0); Mean Corpuscular Hemoglobin 30.9 pg (25-34); Mean Corpuscular Hgb Conc 34.1 g/dL (32-36); Mean Corpuscular Volume 90.6 fL (80-100); Mean Platelet Volume 10.9 fL (7.4-10.4); Platelet Count 147 K/uL (130-400); RDW Coefficient of Variation 14.8 % (11.5-14.5); RDW Standard Deviation 48.9 fL (36.4-46.3); White Blood Count 31.65 K/uL (4.8-10.8)
[2019-01-31 21:04] LABS: Fibrinogen 458 mg/dl (184-400)
--- NOTE | 2019-01-31 21:25 | Critical Care Consultation ---
Date of Consultation January 31, 2019 Assessment & Plan (1) Admitted to intensive care unit: Reason Critically Ill: 34-year-old female status post spontaneous vaginal delivery complicated by need for manual delivery of uterus with hemorrhage requiring close hemodynamic monitoring and possible need for transfusion of further blood products. NEURO - * CAM ICU: NEGATIVE CARDIAC/VASCULAR - * Hemodynamically stable s/p hemorrhage. * Monitor closely for changes and hemodynamic instability. * Transfuse blood products as needed. * Monitor on telemetry. RESPIRATORY - * Saturating well on room air. GI/NUTRITION - * N.p.o. at this point. RENAL/LYTES - * ISAAK: * Likely prerenal in the setting of hemorrhage. * Monitor urine output. * Continue w/ IVF at this time. - * Jimenez in place - Strict I&Os. APPRENTICE PHOTOGRAPHER - * 34 yo female s/p spontaneous vaginal delivery complicated by need for manual delivery of placental w/ subsequent development of hemorrhage. * Resuscitated w/ Pitocin, Methergine x2, Hemabate, TXA x2, Cytotec, 2 units PRBCs, and cryoprecipitate x2. * Bakri Balloon in place at this point. Will monitor for any changes in output for concern of worsening hemorrhage. * Serial labs --> transfuse as needed. * FINISH PRODUCTION MANAGER intervention if persistent bleeding. ENDO - * No h/o DM or Thyroid Dz * BSGs per unit protocol. ISS --> gtt per unit policy. HEME - * hemorrhage: * Received 2U PRBCs, 2U Cryo. * Serial CBCs versus H&Hs to monitor any changes in platelet count. * Transfuse as needed. ID - * No concerns for infectious contribution at this time. LINES/IV ACCESS - * PIVs x2 * Jimenez * Bakri Balloon DVT PROPHYLAXIS - * Hold 2/2 recent hemorrhage. * SCDs I have personally spent 35 minutes of critical care time in the direct management of this patient. This is a life/limb threatening event. This includes time spent evaluating patient, direct bedside care, chart review, placing orders, interpretation of diagnostic studies, discussion with consultants, patient, and family members, as well as other required patient management activities. This time is exclusive of all separately billable procedures, and teaching time and separate from and in addition to any other critical care service time. Thank you for allowing us to participate in the care of this patient. Please refer to my attending physician's documentation for any further recommendations. (2) (spontaneous vaginal delivery): (3) hemorrhage: Supervising Physician Co-Signing Physician Notes I have personally evaluated and examined this patient. I agree with assessment and plan of Oj Harry PA-C. My documentation is phlebotomy services representative of my evaluation and management of the patient from [id number], patient critically ill due to hemorrhage. Discussed with obstetrics as well as anesthesia, the epidural has been capped no indication for removal at this time due to possible dilutional coagulopathy. Reviewed chart extensively, she is Av been administered 2 doses of TXA. Close observation for continued bleeding there is currently 100 mL's of blood in the Creek balloon drain if there is more than 200 mL's in total patient may need emergent hysterectomy. Continue ongoing Pitocin. History of Present Illness Attending Physician: Brian Grimaldo MD History of Present Illness Patient is a 34-year-old female who is status post spontaneous vaginal delivery earlier today at gestational age of 40.5 weeks. Delivery was without complication, however there was difficulty with passing placenta. Placenta was manually removed and hemorrhage was treated with Pitocin, Methergine x2, Hemabate, Cytotec, TXA x2, 2 units PRBCs, and 2 units of cryoprecipitate. Bakri balloon was placed by FINISH PRODUCTION MANAGER and the patient was subsequently transferred to the ICU for close monitoring. Upon arrival in the ICU, the patient is awake, alert, and oriented. She was initially febrile, which has since improved status post Tylenol administration. She complains of some mild discomfort in the lower abdominal area, but otherwise offers no complaints at this time. She reports that she feels much better. Patient currently denies any dizziness, lightheadedness, shortness of breath, chest pain, palpitations, nausea, vomiting, diarrhea, or worsening vaginal bleeding. Allergies Allergy/AdvReac Type Severity Reaction Status Date / Time No Known Drug Allergies Allergy Unknown Verified 01/30/19 08:06 Home Medications Home Medications Medication Instructions Recorded Confirmed Type aspirin 81 mg tablet,delayed 81 mg PO DAILY tab 11/21/18 01/30/19 History release 1 tab PO DAILY 11/21/18 01/30/19 History vitamin,calcium,[id number] acid tablet Patient History Medical History No known health problems Surgical History No history of previous surgery Family History Mother Hypertension Social History (Reviewed 02/01/19 @ 01: by Deng Harry PA-C) Preferred Language: Mandarin Barbadian Communication Ability: Effective Foil Spooler Required: No Beliefs That Will Affect Care: None marital status: Current Living Situation: Spouse Feels Safe at Home: Yes Smoking Status: Never smoker Hx Alcohol Use: No Hx Substance Use: No Review of Systems Review of Systems: A complete 10 point review of systems was reviewed with the patient with pertinent positives and negatives as per history of present illness. All else were negative. Physical Exam Physical Exam: VITAL SIGNS - Vital signs and nursing notes were reviewed. GENERAL - 34-year-old female appearing her stated age who is in no acute distress. 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 SKIN - Without rashes. HEAD - NC/AT. EYES - PERRL with EOMI bilaterally. Sclera anicteric. EARS - No deformities of external structures noted on gross examination bilaterally. NOSE - Midline and without cyanosis. No epistaxis or purulent drainage noted. MOUTH/OROPHARYNX - Without perioral cyanosis. Buccal mucosa pink and moist. NECK - Neck with FROM. Supple to palpation. No nuchal rigidity. LUNGS - Chest wall symmetric without accessory muscle use, intercostals retractions, or central cyanosis. Normal vesicular breath sounds CTA B/L. No wheezes, rales, or rhonchi appreciated. CARDIAC - RRR with S1/S2. No murmur, rubs, or gallops appreciated. ABDOMEN - Abdominal contour flat without pulsations or visible masses. BS normoactive all four quadrants. No TTP. EXTREMITIES - No clubbing or peripheral cyanosis. No pretibial edema present. +3/5 radial and dorsalis pedis pulses palpated throughout. +5/5 strength noted in UE/LE bilaterally. NEUROLOGIC - Cranial nerves II through XII grossly intact. PSYCH - A&Ox3 and cooperates fully with examiner. Pt is very pleasant and interacts well with examiner. Results & Data Vital Signs (Past 12 Hours) Vital Signs Temp Pulse Pulse Resp BP BP Pulse Ox 01/31/19 20:15 97 H 22 143/95 H 100 01/31/19 20:11 96 H 01/31/19 20:07 39.7 C H 108 H 22 144/88 H 94 01/31/19 19:48 96 H 99 01/31/19 19:45 38.8 C H 93 H 20 145/69 H 100 01/31/19 19:43 94 H 100 01/31/19 19:38 97 H 100 01/31/19 19:33 101 H 100 01/31/19 19:31 100 H 143/67 H 01/31/19 19:30 38.7 C H 101 H 20 143/67 H 100 01/31/19 19:28 98 H 100 01/31/19 19:23 103 H 100 01/31/19 19:18 101 H 100 01/31/19 19:15 38.4 C H 101 H 20 126/75 100 01/31/19 19:13 105 H 97 01/31/19 19:08 111 H 100 01/31/19 19:03 120 H 98 01/31/19 19:01 113 H 125/70 01/31/19 19:00 37.3 C 116 H 20 125/70 99 01/31/19 18:58 117 H 100 01/31/19 18:53 118 H 100 01/31/19 18:48 119 H 100 01/31/19 18:46 125 H 131/69 01/31/19 18:45 38.7 C H 118 H 22 131/69 100 01/31/19 18:43 127 H 100 01/31/19 18:38 36.9 C 139 H 22 99/70 L 100 01/31/19 18:33 135 H 100 01/31/19 18:31 67 99/70 L 01/31/19 18:30 36.9 C 22 01/31/19 18:28 140 H 100 01/31/19 18:23 36.6 C 147 H 22 93/62 L 100 01/31/19 18:21 148 H 93/62 L 01/31/19 18:18 154 H 100 01/31/19 18:15 36.6 C 22 01/31/19 18:13 152 H 100 01/31/19 18:12 36.8 C 153 H 22 100/60 100 01/31/19 18:08 151 H 100 01/31/19 18:03 155 H 79 L 01/31/19 18:00 155 H 22 100/60 100 01/31/19 17:58 157 H 100 01/31/19 17:55 149 H 83 L 01/31/19 17:53 151 H 97 01/31/19 17:50 36.6 C 120 H 24 120/72 99 01/31/19 17:48 150 H 97 01/31/19 17:46 149 H 85 L 01/31/19 17:45 36.8 C 120 H 22 94/60 L 97 01/31/19 17:43 143 H 97 01/31/19 17:38 145 H 99 01/31/19 17:36 127 H 169/112 H 01/31/19 17:31 36.6 C 133 H 22 139/74 01/31/19 17:30 36.6 C 22 01/31/19 17:27 151 H 240/122 H 01/31/19 17:25 220/159 H 01/31/19 17:18 134 H 106/74 01/31/19 17:15 22 01/31/19 17:13 117 H 106/69 01/31/19 17:11 114 H 107/71 01/31/19 17:03 100 H 103/60 01/31/19 17:00 36.5 C 24 01/31/19 16:58 105/68 01/31/19 16:53 114 H 96/68 L 01/31/19 16:50 116 H 91/66 L 01/31/19 16:48 130 H 89/52 L 01/31/19 16:35 126 H 127/92 01/31/19 16:21 112 H 131/89 01/31/19 16:08 107 H 134/78 01/31/19 15:53 99 H 159/87 H 01/31/19 15:35 37.0 C 22 01/31/19 15:20 90 143/66 H 01/31/19 15:07 84 138/63 01/31/19 14:51 86 139/68 01/31/19 14:24 37.1 C 22 01/31/19 14:20 112 H 117/57 L 01/31/19 14:10 96 H 89 L 01/31/19 14:09 115 H 86 L 01/31/19 14:05 104 H 120/56 L 94 01/31/19 14:00 113 H 85 L 01/31/19 13:59 115 H 94 01/31/19 13:54 92 H 92 01/31/19 13:51 90 128/64 01/31/19 13:48 81 92 01/31/19 13:43 91 H 90 01/31/19 13:42 136 H 90 01/31/19 13:38 96 H 93 01/31/19 13:37 79 91 01/31/19 13:35 88 135/61 01/31/19 13:33 91 H 94 01/31/19 13:28 95 H 93 01/31/19 13:27 71 90 01/31/19 13:23 99 H 92 01/31/19 13:21 80 137/60 01/31/19 13:19 78 86 L 01/31/19 13:17 74 95 01/31/19 13:14 70 72 L 01/31/19 13:12 77 97 01/31/19 13:07 92 H 95 01/31/19 13:06 83 87 L 01/31/19 13:02 88 97 01/31/19 12:57 90 95 01/31/19 12:56 91 H 89 L 01/31/19 12:52 81 137/65 96 01/31/19 12:47 79 96 01/31/19 12:42 84 95 01/31/19 12:37 76 95 01/31/19 12:36 76 127/60 01/31/19 12:32 78 96 01/31/19 12:30 37.4 C 18 01/31/19 12:27 76 95 01/31/19 12:22 93 H 95 01/31/19 12:20 81 135/70 01/31/19 12:17 99 H 96 01/31/19 12:12 87 95 01/31/19 12:07 83 95 01/31/19 12:05 83 124/65 01/31/19 12:02 79 95 01/31/19 11:57 76 95 01/31/19 11:52 73 96 01/31/19 11:50 73 124/64 01/31/19 11:47 73 95 01/31/19 11:42 78 96 01/31/19 11:37 83 96 01/31/19 11:36 37.7 C H 18 01/31/19 11:35 79 131/71 01/31/19 11:32 76 94 01/31/19 11:27 75 95 01/31/19 11:22 74 94 01/31/19 11:21 68 126/62 01/31/19 11:17 72 97 01/31/19 11:12 72 95 01/31/19 11:07 67 96 01/31/19 11:05 64 121/60 01/31/19 11:02 70 95 01/31/19 10:57 77 93 01/31/19 10:52 74 95 01/31/19 10:50 74 132/64 01/31/19 10:47 73 95 01/31/19 10:42 81 95 01/31/19 10:37 74 132/62 94 01/31/19 10:32 80 94 01/31/19 10:27 79 94 01/31/19 10:22 85 95 01/31/19 10:20 79 122/58 L 01/31/19 10:17 77 95 01/31/19 10:12 80 94 01/31/19 10:07 84 94 01/31/19 10:05 83 124/62 01/31/19 10:02 82 94 01/31/19 09:57 81 94 01/31/19 09:52 81 94 01/31/19 09:50 77 122/61 01/31/19 09:47 81 94 01/31/19 09:45 16 01/31/19 09:42 82 95 01/31/19 09:37 80 95 01/31/19 09:36 79 94 01/31/19 09:35 76 116/59 L 01/31/19 09:32 79 96 01/31/19 09:27 75 95 PG Care Time/CCT Total # of Minutes Spent Total Time Spent with Patient: Total time spent is greater than 50% in coordination of care (as documented) at patient's floor/unit and/or counseling patient: Critical Care Time: Yes Total Critical Care Time: 80 Shippert: 45 Piero: 35 total 80
[2019-01-31 22:12] LABS: Basophils # (auto) 0.02 K/uL (0-0.2); Basophils % (auto) 0.1 %; Echinocytes 1+; Immature Granulocytes # (auto) 0.13 K/uL (0.00-0.02); Immature Granulocytes % (auto) 0.4 %; Lymphocytes % (auto) 3.5 %; Monocytes % (auto) 3.5 %; Neutrophils % (auto) 92.5 %
[2019-01-31] MEDS: BENZOCAINE 20% AER SPR 82.5 GM CAN EXT PRN (23:24)
[2019-02-01 00:39] LABS: Hematocrit (blood only) 26.8 % (37-47); Hemoglobin 9.5 g/dL (12.0-16.0); Mean Corpuscular Hemoglobin 31.8 pg (25-34); Mean Corpuscular Hgb Conc 35.4 g/dL (32-36); Mean Corpuscular Volume 89.6 fL (80-100); Mean Platelet Volume 10.5 fL (7.4-10.4); Platelet Count 130 K/uL (130-400); RDW Coefficient of Variation 15.1 % (11.5-14.5); RDW Standard Deviation 49.4 fL (36.4-46.3); Red Blood Count 2.99 M/uL (4.2-5.4); White Blood Count 30.83 K/uL (4.8-10.8)
--- NOTE | 2019-02-01 00:49 | Obstetrical Progress Note ---
Date of Service February 01, 2019 Subjective Patient is awake and talking in the ICU. Fundus is firm, approx 1cm above umbilicus. Slightly to right. These are similar findings to prior to transfer to ICU. Approx 25cc blood in Bakri bag. No blood on pad under patient. Vitals stable. H/H 9.5/26.8. Doing well. Will obtain breast pump for patient to start to pump until she is reunited with baby when discharged from ICU. Results & Data Vital Signs (Past 12 Hours) Vital Signs Temp Pulse Pulse Resp BP BP Pulse Ox 01/31/19 23:30 81 22 125/73 98 01/31/19 23:29 37.3 C 01/31/19 23:00 77 21 123/70 97 01/31/19 22:30 86 19 132/74 97 01/31/19 22:15 83 15 96 01/31/19 22:10 82 23 97 01/31/19 22:05 37.0 C 82 20 97 01/31/19 22:01 86 18 98 01/31/19 22:00 85 20 132/88 97 01/31/19 21:46 83 19 96 01/31/19 21:45 84 18 132/76 96 01/31/19 21:39 83 01/31/19 21:31 81 19 96 01/31/19 21:30 83 20 132/87 97 01/31/19 21:20 81 19 97 01/31/19 21:15 37.6 C H 85 19 149/87 H 99 01/31/19 21:10 82 19 96 01/31/19 21:01 91 H 22 96 01/31/19 21:00 87 18 134/88 97 01/31/19 20:50 94 H 22 97 01/31/19 20:45 90 20 137/78 98 01/31/19 20:40 92 H 30 H 97 01/31/19 20:31 96 H 17 93 01/31/19 20:30 94 H 16 148/98 H 95 01/31/19 20:15 97 H 22 143/95 H 100 01/31/19 20:11 96 H 01/31/19 20:07 39.7 C H 108 H 22 144/88 H 94 01/31/19 19:48 96 H 99 01/31/19 19:45 38.8 C H 93 H 20 145/69 H 100 01/31/19 19:43 94 H 100 01/31/19 19:38 97 H 100 01/31/19 19:33 101 H 100 01/31/19 19:31 100 H 143/67 H 01/31/19 19:30 38.7 C H 101 H 20 143/67 H 100 01/31/19 19:28 98 H 100 01/31/19 19:23 103 H 100 01/31/19 19:18 101 H 100 01/31/19 19:15 38.4 C H 101 H 20 126/75 100 01/31/19 19:13 105 H 97 01/31/19 19:08 111 H 100 01/31/19 19:03 120 H 98 01/31/19 19:01 113 H 125/70 01/31/19 19:00 37.3 C 116 H 20 125/70 99 01/31/19 18:58 117 H 100 01/31/19 18:53 118 H 100 01/31/19 18:48 119 H 100 01/31/19 18:46 125 H 131/69 01/31/19 18:45 38.7 C H 118 H 22 131/69 100 01/31/19 18:43 127 H 100 01/31/19 18:38 36.9 C 139 H 22 99/70 L 100 01/31/19 18:33 135 H 100 01/31/19 18:31 67 99/70 L 01/31/19 18:30 36.9 C 22 01/31/19 18:28 140 H 100 01/31/19 18:23 36.6 C 147 H 22 93/62 L 100 01/31/19 18:21 148 H 93/62 L 01/31/19 18:18 154 H 100 01/31/19 18:15 36.6 C 22 01/31/19 18:13 152 H 100 01/31/19 18:12 36.8 C 153 H 22 100/60 100 01/31/19 18:08 151 H 100 01/31/19 18:03 155 H 79 L 01/31/19 18:00 155 H 22 100/60 100 01/31/19 17:58 157 H 100 01/31/19 17:55 149 H 83 L 01/31/19 17:53 151 H 97 01/31/19 17:50 36.6 C 120 H 24 120/72 99 01/31/19 17:48 150 H 97 01/31/19 17:46 149 H 85 L 01/31/19 17:45 36.8 C 120 H 22 94/60 L 97 01/31/19 17:43 143 H 97 01/31/19 17:38 145 H 99 01/31/19 17:36 127 H 169/112 H 01/31/19 17:31 36.6 C 133 H 22 139/74 01/31/19 17:30 36.6 C 22 01/31/19 17:27 151 H 240/122 H 01/31/19 17:25 220/159 H 01/31/19 17:18 134 H 106/74 01/31/19 17:15 22 01/31/19 17:13 117 H 106/69 01/31/19 17:11 114 H 107/71 01/31/19 17:03 100 H 103/60 01/31/19 17:00 36.5 C 24 01/31/19 16:58 105/68 01/31/19 16:53 114 H 96/68 L 01/31/19 16:50 116 H 91/66 L 01/31/19 16:48 130 H 89/52 L 01/31/19 16:35 126 H 127/92 01/31/19 16:21 112 H 131/89 01/31/19 16:08 107 H 134/78 01/31/19 15:53 99 H 159/87 H 01/31/19 15:35 37.0 C 22 01/31/19 15:20 90 143/66 H 01/31/19 15:07 84 138/63 01/31/19 14:51 86 139/68 01/31/19 14:24 37.1 C 22 01/31/19 14:20 112 H 117/57 L 01/31/19 14:10 96 H 89 L 01/31/19 14:09 115 H 86 L 01/31/19 14:05 104 H 120/56 L 94 01/31/19 14:00 113 H 85 L 01/31/19 13:59 115 H 94 01/31/19 13:54 92 H 92 01/31/19 13:51 90 128/64 01/31/19 13:48 81 92 10/09/19 13:43 91 H 90 01/31/19 13:42 136 H 90 01/31/19 13:38 96 H 93 01/31/19 13:37 79 91 01/31/19 13:35 88 135/61 01/31/19 13:33 91 H 94 01/31/19 13:28 95 H 93 01/31/19 13:27 71 90 01/31/19 13:23 99 H 92 01/31/19 13:21 80 137/60 01/31/19 13:19 78 86 L 01/31/19 13:17 74 95 01/31/19 13:14 70 72 L 01/31/19 13:12 77 97 01/31/19 13:07 92 H 95 01/31/19 13:06 83 87 L 01/31/19 13:02 88 97 01/31/19 12:57 90 95 01/31/19 12:56 91 H 89 L 01/31/19 12:52 81 137/65 96 PG Care Time/CCT Total # of Minutes Spent Total Time Spent with Patient: Total time spent is greater than 50% in coordination of care (as documented) at patient's floor/unit and/or counseling patient:
[2019-02-01 01:16] LABS: Basophils # (auto) 0.01 K/uL (0-0.2); Immature Granulocytes # (auto) 0.14 K/uL (0.00-0.02); Immature Granulocytes % (auto) 0.5 %; Lymphocytes # (auto) 1.82 K/uL (1.2-3.4); Lymphocytes % (auto) 5.9 %; Monocytes # (auto) 1.43 K/uL (0.11-0.59); Monocytes % (auto) 4.6 %; Neutrophils # (auto) 27.43 K/uL (1.4-6.5); Toxic Granulation 1+; Toxic Vacuolation 1+
[2019-02-01] MEDS: OXYTOCIN 20 UNITS in LACTATED RINGER'S 1,000 ML IV SCH ×3 (02:30→18:45)
[2019-02-01 04:46] LABS: Mean Corpuscular Hemoglobin 31.9 pg (25-34); Mean Corpuscular Volume 88.7 fL (80-100); Mean Platelet Volume 10.2 fL (7.4-10.4); Platelet Count 133 K/uL (130-400); RDW Coefficient of Variation 15.3 % (11.5-14.5); RDW Standard Deviation 49.6 fL (36.4-46.3); Red Blood Count 2.82 M/uL (4.2-5.4); White Blood Count 31.58 K/uL (4.8-10.8)
[2019-02-01 05:03] LABS: Albumin Level 1.8 gm/dl (3.4-5.0); BUN Creatinine Ratio 16.3 (10-20); Bilirubin Direct 0.2 mg/dl (0-0.2); Calcium 7.5 mg/dl (8.5-10.1); Creatinine Clr Calc Pharmacy 73.3 ml/min; Est GFR (African American) 72.1; Est GFR (Non-African American) 62.2; Magnesium 1.6 mg/dl (1.8-2.4); Potassium 3.7 mmol/L (3.5-5.1)
[2019-02-01 05:06] LABS: Bilirubin,Total 0.8 mg/dl (0.2-1); Phosphorus 3.5 mg/dl (2.5-4.9); Total Protein 4.4 gm/dl (6.4-8.2)
[2019-02-01 05:40] LABS: Basophils # (auto) 0.03 K/uL (0-0.2); Basophils % (auto) 0.1 %; Eosinophils # (auto) 0.01 K/uL (0-0.5); Immature Granulocytes # (auto) 0.13 K/uL (0.00-0.02); Immature Granulocytes % (auto) 0.4 %; Lymphocytes # (auto) 2.67 K/uL (1.2-3.4); Lymphocytes % (auto) 8.5 %; Monocytes # (auto) 1.52 K/uL (0.11-0.59); Monocytes % (auto) 4.8 %; Neutrophils # (auto) 27.22 K/uL (1.4-6.5); Neutrophils % (auto) 86.2 %; Toxic Granulation 1+; Toxic Vacuolation 1+
--- NOTE | 2019-02-01 07:28 | Obstetrical Progress Note ---
Date of Service February 01, 2019 Assessment & Plan (1) hemorrhage: PPD#1 s/p and hemorrhage. Minimal output from Bakri balloon. Will plan to slowly deflate Bakri later today. Has not required any further blood products. Vitals stable. Labs trending ok. Anticipate transfer out of ICU today to unit. If ok plan by ICU attending, will plan for this at some time after ICU rounds this AM. Advance diet today - Ordered OB regular diet. Continue using breast pump until reunited with baby. Will ask client relationship consultant to visit patient. (2) (spontaneous vaginal delivery): (3) Admitted to intensive care unit: Subjective Ambulation: limited ambulation (in bed with Bakri balloon) Voiding: dukes catheter in place Diet Tolerance:: NPO Lochia:: Small Feeding Type:: breast feeding (has not yet really pumped in ICU) PPD#1 s/p spontaneous vaginal delivery, followed by severe hemorrhage. Rec'd 2u PRBC, 2u cryo. Rec'd 2 doses TXA, 2 doses methergine, 1 dose hemabate, 1 dose cytotec. Has Bakri balloon in place, filled with 500cc saline. There is 50cc blood output in bakri bag over her entire stay in ICU. There is scant blood on the chux pad under patient. Patient is awake, feeling well, is thirsty but not hungry. Has a breast pump available, but has not really tried pumping yet. Physical Exam Gen: AAOX3 NAD CV: RRR L: CTAB Abd: fundus firm, 1-2 cm above umbilicus, to right. This is same exam as last night. Ext: SCDs in place, no calf tenderness Results & Data Vital Signs (Past 12 Hours) Vital Signs Temp Pulse Pulse Resp BP BP Pulse Ox 02/01/19 05:30 79 17 125/89 100 02/01/19 05:00 67 18 119/74 98 02/01/19 04:30 64 16 119/73 97 02/01/19 04:20 36.8 C 02/01/19 04:00 36.8 C 66 15 117/70 96 02/01/19 03:30 74 15 137/74 96 02/01/19 03:00 72 16 118/65 96 02/01/19 02:30 74 18 117/67 97 02/01/19 02:00 73 16 121/72 96 02/01/19 01:30 73 17 122/69 96 02/01/19 01:00 77 17 119/70 96 02/01/19 00:30 79 20 129/69 96 02/01/19 00:00 75 19 141/79 H 97 01/31/19 23:30 81 22 125/73 98 01/31/19 23:29 37.3 C 01/31/19 23:00 77 21 123/70 97 01/31/19 22:30 86 19 132/74 97 01/31/19 22:15 83 15 96 01/31/19 22:10 82 23 97 01/31/19 22:05 37.0 C 82 20 97 01/31/19 22:01 86 18 98 01/31/19 22:00 85 20 132/88 97 01/31/19 21:46 83 19 96 01/31/19 21:45 84 18 132/76 96 01/31/19 21:39 83 01/31/19 21:31 81 19 96 01/31/19 21:30 83 20 132/87 97 01/31/19 21:20 81 19 97 01/31/19 21:15 37.6 C H 85 19 149/87 H 99 01/31/19 21:10 82 19 96 01/31/19 21:01 91 H 22 96 01/31/19 21:00 87 18 134/88 97 01/31/19 20:50 94 H 22 97 01/31/19 20:45 90 20 137/78 98 01/31/19 20:40 92 H 30 H 97 01/31/19 20:31 96 H 17 93 01/31/19 20:30 94 H 16 148/98 H 95 01/31/19 20:15 97 H 22 143/95 H 100 01/31/19 20:11 96 H 01/31/19 20:07 39.7 C H 108 H 22 144/88 H 94 01/31/19 19:48 96 H 99 01/31/19 19:45 38.8 C H 93 H 20 145/69 H 100 01/31/19 19:43 94 H 100 01/31/19 19:38 97 H 100 01/31/19 19:33 101 H 100 01/31/19 19:31 100 H 143/67 H 01/31/19 19:30 38.7 C H 101 H 20 143/67 H 100 01/31/19 19:28 98 H 100
--- NOTE | 2019-02-01 07:57 | Critical Care Progress Note ---
Date of Service February 01, 2019 Assessment & Plan (1) Admitted to intensive care unit: Reason Critically Ill: 34-year-old female status post spontaneous vaginal delivery complicated by need for manual delivery of uterus with hemorrhage requiring close hemodynamic monitoring and possible need for transfusion of further blood products. NEURO - CAM ICU: NEGATIVE Plan to remove epidural cath today by anesthesiology CARDIAC/VASCULAR - Hemodynamically stable s/p hemorrhage. Monitor closely for changes and hemodynamic instability. Transfuse blood products as needed. Monitor on telemetry. Repeat PT/INR/PTT/Fibrinogen today RESPIRATORY - Saturating well on room air. GI/NUTRITION - Advanced diet today RENAL/LYTES - ISAAK: Likely prerenal in the setting of hemorrhage. Monitor urine output. DC'd IVD - Jimenez in place - Strict I&Os. female s/p spontaneous vaginal delivery complicated by need for manual delivery of placental w/ subsequent development of hemorrhage. Resuscitated w/ Pitocin, Methergine x2, Hemabate, TXA x2, Cytotec, 2 units PRBCs, and cryoprecipitate x2. Bakri Balloon in place at this point. Will monitor for any changes in output for concern of worsening hemorrhage. Serial labs --> transfuse as needed. H/H stable ENDO - No h/o DM or Thyroid Dz BSGs per unit protocol. ISS --> gtt per unit policy. HEME - hemorrhage: Received 2U PRBCs, 2U Cryo. Cont trend H/H Transfuse as needed. ID - No concerns for infectious contribution at this time. LINES/IV ACCESS - PIVs x2, Jimenez, Bakri Balloon DVT PROPHYLAXIS - Hold 2/2 recent hemorrhage, SCDs FULL CODE DISPO: Stable for Downgrade out of ICU Supervising Physician Co-Signing Physician Notes Dr. Gamez was resident physician during care of patient. I separately evaluated patient for vargas portions of the history and the exam. I was present during the critical portion of medical decision making, and I discussed the case with the resident. I generally agree with the findings and plan. Patient had appropriate response, no evidence of ongoing bleeding. Discussed with OB will transfer to mother-baby for discontinuation of back re-balloon. Repeat coags if normalized will discuss with anesthesia regarding discontinuation of epidural catheter. Stable for downgrade out of ICU. Subjective 34 yo F found in bed this AM in NAD. No reported overnight events. 60ml vaginal blood loss noted. No blood on pad under patient. Tolerating pain. No other acute concerns or complaints. Review of Systems Review of Systems: All systems reviewed & are unremarkable except as noted in HPI & below Physical Exam Constitutional: WD/WN, vitals as above Eyes: PERRL, conjunctivae normal, anicteric sclerae ENMT: external ear and nose normal, oropharynx normal Respiratory: normal respiratory effort, lungs clear to auscultation Cardiovascular: RRR, no murmur, no edema Gastrointestinal (Abdomen): normal bowel sounds, soft, nontender, no hepatosplenomegaly Skin: no rashes, warm and dry Psychiatric: A+Ox3, euthymic affect Genitourinary: Fundus is firm, approx 1cm above umbilicus. Results & Data Vital Signs (Past 12 Hours) Vital Signs Temp Pulse Pulse Resp BP BP Pulse Ox 02/01/19 05:30 79 17 125/89 100 02/01/19 05:00 67 18 119/74 98 02/01/19 04:30 64 16 119/73 97 02/01/19 04:20 36.8 C 02/01/19 04:00 36.8 C 66 15 117/70 96 02/01/19 03:30 74 15 137/74 96 02/01/19 03:00 72 16 118/65 96 02/01/19 02:30 74 18 117/67 97 02/01/19 02:00 73 16 121/72 96 02/01/19 01:30 73 17 122/69 96 02/01/19 01:00 77 17 119/70 96 02/01/19 00:30 79 20 129/69 96 02/01/19 00:00 75 19 141/79 H 97 01/31/19 23:30 81 22 125/73 98 01/31/19 23:29 37.3 C 01/31/19 23:00 77 21 123/70 97 01/31/19 22:30 86 19 132/74 97 01/31/19 22:15 83 15 96 01/31/19 22:10 82 23 97 01/31/19 22:05 37.0 C 82 20 97 01/31/19 22:01 86 18 98 01/31/19 22:00 85 20 132/88 97 01/31/19 21:46 83 19 96 01/31/19 21:45 84 18 132/76 96 01/31/19 21:39 83 01/31/19 21:31 81 19 96 01/31/19 21:30 83 20 132/87 97 01/31/19 21:20 81 19 97 01/31/19 21:15 37.6 C H 85 19 149/87 H 99 01/31/19 21:10 82 19 96 01/31/19 21:01 91 H 22 96 01/31/19 21:00 87 18 134/88 97 01/31/19 20:50 94 H 22 97 01/31/19 20:45 90 20 137/78 98 01/31/19 20:40 92 H 30 H 97 01/31/19 20:31 96 H 17 93 01/31/19 20:30 94 H 16 148/98 H 95 01/31/19 20:15 97 H 22 143/95 H 100 01/31/19 20:11 96 H 01/31/19 20:07 39.7 C H 108 H 22 144/88 H 94 Laboratory Results Laboratory Results - last 24 hr 01/30/19 01/31/19 01/31/19 08:24 17:12 17:12 WBC 24.34 H RBC 3.17 L Hgb 10.1 L Hct 30.0 L MCV 94.6 MCH 31.9 MCHC 33.7 RDW Std Deviation 47.2 H RDW Coeff of Tanna 13.6 Plt Count 179 MPV 10.5 H Immature Gran % (Auto) Neut % (Auto) Lymph % (Auto) [place] % (Auto) Eos % (Auto) Baso % (Auto) Immature Gran # (Auto) Neut # (Auto) Lymph # (Auto) [place] # (Auto) Eos # (Auto) Baso # (Auto) Toxic Granulation Toxic Vacuolation Echinocytes PT INR APTT PTT Ratio Fibrinogen 451 H D-Dimer > 06071 H* VBG pH VBG pCO2 VBG pO2 VBG HCO3 VBG O2 Saturation VBG Base Excess Barometric Pressure Sodium Potassium Chloride Carbon Dioxide Anion Gap BUN Creatinine Est Cr Clr Drug Dosing Est GFR ( Amer) Est GFR (Non-Af Amer) BUN/Creatinine Ratio Glucose POC Glucose Calcium Phosphorus Magnesium Total Bilirubin Direct Bilirubin AST ALT Alkaline Phosphatase Lactate Dehydrogenase Total Protein Albumin Globulin Albumin/Globulin Ratio Nasal Screen MRSA (PCR) Blood Type B Positive Blood Type Recheck Antibody Screen NEGATIVE Crossmatch See Detail 01/31/19 01/31/19 01/31/19 17:12 17:12 17:12 WBC RBC Hgb Hct MCV MCH MCHC RDW Std Deviation RDW Coeff of Tanna Plt Count MPV Immature Gran % (Auto) Neut % (Auto) Lymph % (Auto) [place] % (Auto) Eos % (Auto) Baso % (Auto) Immature Gran # (Auto) Neut # (Auto) Lymph # (Auto) [place] # (Auto) Eos # (Auto) Baso # (Auto) Toxic Granulation Toxic Vacuolation Echinocytes PT 10.5 INR 1.0 APTT 33.0 H PTT Ratio 1.2 Fibrinogen D-Dimer VBG pH VBG pCO2 VBG pO2 VBG HCO3 VBG O2 Saturation VBG Base Excess Barometric Pressure Sodium 138 Potassium 3.7 Chloride 110 H Carbon Dioxide 17 L Anion Gap 11.0 BUN 15 Creatinine 1.24 H Est Cr Clr Drug Dosing 67.4 Est GFR ( Amer) 65.2 Est GFR (Non-Af Amer) 56.2 BUN/Creatinine Ratio 11.7 Glucose 91 POC Glucose Calcium 8.1 L Phosphorus Magnesium Total Bilirubin 0.8 Direct Bilirubin AST 24 ALT < 6 L Alkaline Phosphatase 173 H Lactate Dehydrogenase 268 H Total Protein 5.3 L Albumin 2.1 L Globulin 3.2 Albumin/Globulin Ratio 0.7 L Nasal Screen MRSA (PCR) Blood Type Blood Type Recheck Antibody Screen Crossmatch 01/31/19 01/31/19 01/31/19 18:17 18:18 18:18 WBC 28.71 H RBC 3.02 L Hgb 9.7 L Hct 29.4 L MCV 97.4 MCH 32.1 MCHC 33.0 RDW Std Deviation 49.0 H RDW Coeff of Tanna 13.9 Plt Count 167 MPV 10.4 Immature Gran % (Auto) Neut % (Auto) Lymph % (Auto) [place] % (Auto) Eos % (Auto) Baso % (Auto) Immature Gran # (Auto) Neut # (Auto) Lymph # (Auto) [place] # (Auto) Eos # (Auto) Baso # (Auto) Toxic Granulation Toxic Vacuolation Echinocytes PT 11.2 INR 1.1 APTT 38.1 H PTT Ratio 1.4 Fibrinogen 363 D-Dimer VBG pH VBG pCO2 VBG pO2 VBG HCO3 VBG O2 Saturation VBG Base Excess Barometric Pressure Sodium 144 Potassium 3.5 Chloride 118 H Carbon Dioxide 9 L* Anion Gap 17.0 H BUN 12 Creatinine 1.30 H Est Cr Clr Drug Dosing 64.3 Est GFR ( Amer) 61.6 Est GFR (Non-Af Amer) 53.1 BUN/Creatinine Ratio 9.5 L Glucose 105 H POC Glucose Calcium 6.6 L D Phosphorus Magnesium Total Bilirubin 0.5 Direct Bilirubin AST 22 ALT < 6 L Alkaline Phosphatase 131 H Lactate Dehydrogenase Total Protein 3.7 L D Albumin 1.6 L Globulin 2.1 L Albumin/Globulin Ratio 0.8 L Nasal Screen MRSA (PCR) Blood Type Blood Type Recheck Antibody Screen Crossmatch 01/31/19 01/31/19 01/31/19 18:18 20:00 20:30 WBC 31.65 H* RBC 3.40 L Hgb 10.5 L Hct 30.8 L MCV 90.6 D MCH 30.9 MCHC 34.1 RDW Std Deviation 48.9 H RDW Coeff of Tanna 14.8 H Plt Count 147 MPV 10.9 H Immature Gran % (Auto) 0.4 Neut % (Auto) 92.5 Lymph % (Auto) 3.5 [place] % (Auto) 3.5 Eos % (Auto) 0.0 Baso % (Auto) 0.1 Immature Gran # (Auto) 0.13 H Neut # (Auto) 29.30 H Lymph # (Auto) 1.10 L [place] # (Auto) 1.10 H Eos # (Auto) 0.00 Baso # (Auto) 0.02 Toxic Granulation Toxic Vacuolation Echinocytes 1+ PT INR APTT PTT Ratio Fibrinogen D-Dimer VBG pH VBG pCO2 VBG pO2 VBG HCO3 VBG O2 Saturation VBG Base Excess Barometric Pressure Sodium Potassium Chloride Carbon Dioxide Anion Gap BUN Creatinine Est Cr Clr Drug Dosing Est GFR ( Amer) Est GFR (Non-Af Amer) BUN/Creatinine Ratio Glucose POC Glucose Calcium Phosphorus Magnesium Total Bilirubin Direct Bilirubin AST ALT Alkaline Phosphatase Lactate Dehydrogenase Total Protein Albumin Globulin Albumin/Globulin Ratio Nasal Screen MRSA (PCR) Negative Blood Type Blood Type Recheck B Positive Antibody Screen Crossmatch 01/31/19 01/31/19 01/31/19 20:30 20:30 23:39 WBC RBC Hgb Hct MCV MCH MCHC RDW Std Deviation RDW Coeff of Tanna Plt Count MPV Immature Gran % (Auto) Neut % (Auto) Lymph % (Auto) [place] % (Auto) Eos % (Auto) Baso % (Auto) Immature Gran # (Auto) Neut # (Auto) Lymph # (Auto) [place] # (Auto) Eos # (Auto) Baso # (Auto) Toxic Granulation Toxic Vacuolation Echinocytes PT 11.1 INR 1.1 APTT 32.1 H PTT Ratio 1.2 Fibrinogen 458 H D D-Dimer VBG pH 7.44 H VBG pCO2 27 L VBG pO2 25 VBG HCO3 18 VBG O2 Saturation < 60.0 VBG Base Excess -5.0 Barometric Pressure 738.4 Sodium Potassium Chloride Carbon Dioxide Anion Gap BUN Creatinine Est Cr Clr Drug Dosing Est GFR ( Amer) Est GFR (Non-Af Amer) BUN/Creatinine Ratio Glucose POC Glucose 94 Calcium Phosphorus Magnesium Total Bilirubin Direct Bilirubin AST ALT Alkaline Phosphatase Lactate Dehydrogenase Total Protein Albumin Globulin Albumin/Globulin Ratio Nasal Screen MRSA (PCR) Blood Type Blood Type Recheck Antibody Screen Crossmatch 02/01/19 02/01/19 02/01/19 00:20 04:17 04:17 WBC 30.83 H* 31.58 H* RBC 2.99 L 2.82 L Hgb 9.5 L 9.0 L Hct 26.8 L 25.0 L MCV 89.6 88.7 MCH 31.8 31.9 MCHC 35.4 36.0 RDW Std Deviation 49.4 H 49.6 H RDW Coeff of Tanna 15.1 H 15.3 H Plt Count 130 133 MPV 10.5 H 10.2 Immature Gran % (Auto) 0.5 0.4 Neut % (Auto) 89.0 86.2 Lymph % (Auto) 5.9 8.5 [place] % (Auto) 4.6 4.8 Eos % (Auto) 0.0 0.0 Baso % (Auto) 0.0 0.1 Immature Gran # (Auto) 0.14 H 0.13 H Neut # (Auto) 27.43 H 27.22 H Lymph # (Auto) 1.82 2.67 [place] # (Auto) 1.43 H 1.52 H Eos # (Auto) 0.00 0.01 Baso # (Auto) 0.01 0.03 Toxic Granulation 1+ 1+ Toxic Vacuolation 1+ 1+ Echinocytes PT INR APTT PTT Ratio Fibrinogen D-Dimer VBG pH VBG pCO2 VBG pO2 VBG HCO3 VBG O2 Saturation VBG Base Excess Barometric Pressure Sodium 140 Potassium 3.7 Chloride 112 H Carbon Dioxide 18 L Anion Gap 10.0 BUN 19 H D Creatinine 1.14 Est Cr Clr Drug Dosing 73.3 Est GFR ( Amer) 72.1 Est GFR (Non-Af Amer) 62.2 BUN/Creatinine Ratio 16.3 Glucose 82 POC Glucose Calcium 7.5 L Phosphorus 3.5 Magnesium 1.6 L Total Bilirubin 0.8 Direct Bilirubin 0.2 AST 48 H ALT 10 L Alkaline Phosphatase 108 Lactate Dehydrogenase Total Protein 4.4 L Albumin 1.8 L Globulin Albumin/Globulin Ratio Nasal Screen MRSA (PCR) Blood Type Blood Type Recheck Antibody Screen Crossmatch 02/01/19 10:33 WBC RBC Hgb Hct MCV MCH MCHC RDW Std Deviation RDW Coeff of Tanna Plt Count MPV Immature Gran % (Auto) Neut % (Auto) Lymph % (Auto) [place] % (Auto) Eos % (Auto) Baso % (Auto) Immature Gran # (Auto) Neut # (Auto) Lymph # (Auto) [place] # (Auto) Eos # (Auto) Baso # (Auto) Toxic Granulation Toxic Vacuolation Echinocytes PT 12.1 H INR 1.2 H APTT 39.5 H PTT Ratio 1.5 Fibrinogen 445 H D-Dimer VBG pH VBG pCO2 VBG pO2 VBG HCO3 VBG O2 Saturation VBG Base Excess Barometric Pressure Sodium Potassium Chloride Carbon Dioxide Anion Gap BUN Creatinine Est Cr Clr Drug Dosing Est GFR ( Amer) Est GFR (Non-Af Amer) BUN/Creatinine Ratio Glucose POC Glucose Calcium Phosphorus Magnesium Total Bilirubin Direct Bilirubin AST ALT Alkaline Phosphatase Lactate Dehydrogenase Total Protein Albumin Globulin Albumin/Globulin Ratio Nasal Screen MRSA (PCR) Blood Type Blood Type Recheck Antibody Screen Crossmatch Medications Administered Current Inpatient Medications Benzocaine (Dermoplast Pain Relieving [place]) 1 appln EXT UD PRN PRN Reason: pain Stop: 03/02/19 23:06 Last Admin: 01/31/19 23:24 Dose: 1 appln Documented by: Carboprost Tromethamine (Hemabate) 250 mcg IM ONE PRN PRN Reason: Uterine atony/bleeding Stop: 03/02/19 16:47 Last Admin: 01/31/19 16:44 Dose: 250 mcg Documented by: Oxytocin (Pitocin) 30 units in 500 mls @ 333.333 mls/hr IV .Q1H30M PRN; Protocol PRN Reason: Bleeding Control Stop: 03/01/19 08:10 Last Titration: 01/31/19 17:42 Dose: Infused Documented by: Sodium Chloride (Nss) 250 mls @ 15 mls/hr IV .[id number] PRN PRN Reason: For Transfusion Stop: 02/01/19 16:41 Oxytocin 20 units/ Lactated (Ringer's) 1,002 mls @ 125 mls/hr IV .Q8H1M WENDY Stop: 03/02/19 17:59 Last Admin: 02/01/19 10:49 Dose: 125 mls/hr Documented by: Methylergonovine Maleate (Methergine) 0.2 mg IM Q4H PRN PRN Reason: Uterine atony/bleeding Stop: 03/02/19 16:47 Last Admin: 01/31/19 17:55 Dose: 0.2 mg Documented by: Miscellaneous (Icu Protocol For Hyperglycemia) 1 ea N/A PRN PRN; Protocol PRN Reason: Hyperglycemia Protocol Stop: 02/02/19 20:10 PG Care Time/CCT Total # of Minutes Spent Total Time Spent with Patient: Total time spent is greater than 50% in coordination of care (as documented) at patient's floor/unit and/or counseling patient: Resident Activity Tracking Resident Involvement: Resident Care Provided Care Provided: Adult Hospital Medicine
[2019-02-01] MEDS: NORMOSOL-R 1,000 ML IV SCH (09:01)
[2019-02-01 11:22] LABS: Fibrinogen 445 mg/dl (184-400); INR 1.2 (0.9-1.1); Partial Thromboplastin Ratio 1.5; Partial Thromboplastin Time 39.5 Seconds (21.0-31.0); Prothrombin Time 12.1 Seconds (9.0-12.0)
[2019-02-01] MEDS ORDERED: OXYTOCIN 30 UNITS/500 ML BAG IV PRN (15:02)
[2019-02-01] MEDS ORDERED: DIPHTHERIA/TETANUS/PERTUSSIS 0.5 ML SYR/VIAL IM ONE (15:02)
[2019-02-01] MEDS ORDERED: SUPERCREAM 0.870% 15 GM JAR EXT PRN (15:02)
[2019-02-01] MEDS ORDERED: HYDROCORTISONE ACETATE 25 MG SUPP PR PRN (15:02)
[2019-02-01] MEDS ORDERED: ACETAMINOPHEN 325 MG TAB PO PRN (15:02)
[2019-02-01] MEDS: OXYCODONE/ACETAMINOPHEN 5mg/325mg TAB PO PRN (15:17)
--- NOTE | 2019-02-01 17:11 | Obstetrical Progress Note ---
Date of Service February 01, 2019 Assessment & Plan (1) hemorrhage: Plan to remove 100cc hourly from the Bakri. PTT was a bit elevated when coags checked. NO evidence of bleeding currently. Scant blood on pad . Vitals stable. Then plan on keeping patient on labor and delivery overnight for evaluation. (2) (spontaneous vaginal delivery): Subjective Patient notes some cramping, but is otherwise without complaints. Has moved up to her room on labor and delivery. Physical Exam Constitutional: WD/WN, vitals as above Gastrointestinal (Abdomen): fundus firm at u and to the right. Genitourinary: 100cc removed from the bakri balloon without incident. Results & Data Vital Signs (Past 12 Hours) Vital Signs Temp Pulse Resp BP Pulse Ox 02/01/19 15:39 85 16 104/60 02/01/19 14:30 36.9 C 20 02/01/19 13:00 87 19 117/67 96 02/01/19 12:30 89 24 124/62 97 02/01/19 12:00 36.4 C L 95 H 18 113/71 97 02/01/19 11:30 92 H 24 121/65 96 02/01/19 11:00 91 H 18 126/69 97 02/01/19 10:30 86 17 104/58 L 95 02/01/19 10:00 95 H 23 118/63 95 02/01/19 09:30 94 H 29 H 121/57 L 96 02/01/19 09:00 92 H 19 107/69 95 02/01/19 08:30 89 19 115/64 96 02/01/19 08:00 36.7 C 93 H 24 119/74 96 02/01/19 07:30 77 20 119/67 99 02/01/19 07:00 78 20 123/74 99 02/01/19 05:30 79 17 125/89 100 PG Care Time/CCT Total # of Minutes Spent Total Time Spent with Patient: Total time spent is greater than 50% in coordination of care (as documented) at patient's floor/unit and/or counseling patient:
[2019-02-01] MEDS: IBUPROFEN 600 MG TAB PO PRN (20:10)
[2019-02-01 20:24] LABS: INR 1.1 (0.9-1.1); Partial Thromboplastin Ratio 1.3; Partial Thromboplastin Time 35.9 Seconds (21.0-31.0); Prothrombin Time 11.2 Seconds (9.0-12.0)
--- NOTE | 2019-02-01 21:13 | Anesthesiology Progress Note ---
Date of Service February 01, 2019 Subjective I spoke to the patient about her epidural catheter. Due to her PTT being elevat ed, I recommended that we reassess her labwork in the AM. If there is resolution of her coagulation tests, then it would be safe to remove the epidural catheter. The patient was understanding. Dr. Cortez was made aware of the plan. Physical Exam Vital Signs: Last Vital Signs Temp 98.2 F 02/01/19 20:30 Pulse 77 02/01/19 20:30 Resp 18 02/01/19 20:30 BP 109/68 02/01/19 20:30 Pulse Ox 96 02/01/19 13:00 Results & Data Medications Administered Benzocaine (Dermoplast Pain Relieving [place]) 1 appln EXT UD PRN PRN Reason: pain Stop: 03/02/19 23:06 Last Admin: 01/31/19 23:24 Dose: 1 appln Documented by: [id number] Oxytocin 20 units/ Lactated (Ringer's) 1,002 mls @ 125 mls/hr IV .Q8H1M WENDY Stop: 03/02/19 17:59 Last Admin: 02/01/19 18:45 Dose: 125 mls/hr Documented by: [id number] Cosigned by: [id number] Infusion: 02/01/19 18:45 Dose: 125 mls/hr Documented by: [id number] Cosigned by: [id number] Admin: 02/01/19 10:49 Dose: 125 mls/hr Documented by: [id number] Cosigned by: [id number] Infusion: 02/01/19 10:31 Dose: 125 mls/hr Documented by: [id number] Cosigned by: [id number] Admin: 02/01/19 02:30 Dose: 125 mls/hr Documented by: [id number] Cosigned by: [id number] Infusion: 02/01/19 02:30 Dose: 125 mls/hr Documented by: [id number] Cosigned by: [id number] Admin: 01/31/19 18:57 Dose: 125 mls/hr Documented by: [id number] Cosigned by: [id number] Ibuprofen (Motrin) 600 mg PO Q4H PRN PRN Reason: Pain/GAONA/Cramping/Fever Stop: 03/03/19 15:01 Last Admin: 02/01/19 20:10 Dose: 600 mg Documented by: [id number] Oxycodone/Acetaminophen (Percocet 5mg/325mg) 1 tab PO Q4H PRN PRN Reason: Pain not relieved by... Stop: 02/15/19 15:01 Last Admin: 02/01/19 15:17 Dose: 1 tab Documented by: [id number]
[2019-02-01 21:33] LABS: Fibrinogen 490 mg/dl (184-400)
[2019-02-01] MEDS: DOCUSATE SODIUM 100 MG CAP PO SCH (21:42)
[2019-02-02] MEDS: IBUPROFEN 600 MG TAB PO PRN ×4 (00:06→20:35)
[2019-02-02 06:13] LABS: Hematocrit (blood only) 21.1 % (37-47); Hemoglobin 7.6 g/dL (12.0-16.0); Mean Corpuscular Hemoglobin 32.6 pg (25-34); Mean Corpuscular Volume 90.6 fL (80-100); Mean Platelet Volume 10.5 fL (7.4-10.4); Platelet Count 158 K/uL (130-400); RDW Coefficient of Variation 15.7 % (11.5-14.5); RDW Standard Deviation 51.7 fL (36.4-46.3); Red Blood Count 2.33 M/uL (4.2-5.4); White Blood Count 25.41 K/uL (4.8-10.8)
--- NOTE | 2019-02-02 06:20 | Obstetrical Progress Note ---
Date of Service February 02, 2019 Assessment & Plan (1) hemorrhage: 34 s/p @ 40.5 PPD#2 complicated by severe PPH, w/ Bacri removed Severe PPH - VSS, ambulating, urinating w/ difficulty - H&H stable - Bacri removed - fundus firm and at the level of the umbilicus - continue to monitor VS and H&H -PPD# 2 - GBS negative, Blood Type B+ - Feels well today. Eating well, voiding well, ambulating well. - Pain well controlled. - After discharge will have [address] Colin. Supervising Physician Co-Signing Physician Notes Resident Physician Supervision Note: I interviewed and examined the patient. Discussed with Dr. Cruz and agree with findings and plan as documented in the note. Any exceptions or clarifications are listed here: Patient doing very well. Epidural was found to be already out when evaluated by anesthesia today. Her h/h today reflects her blood loss. However, she is asymptomatic when ambulating. Her urine output has significantly improved and her bath steward is .84 today. Voiding without difficulty. plts nl. Ptt trending down slowly. One of her liver functions has bumped today into an abnl range. She does not display any s/s of pet. I suspect this is a function of some cell loss from her severe pph similar to her NATALIO. Will f/u on labs tomorrow am and continue to watch closely. Her bleeding is minimal at this time and her fundus is firm and slightly to the right just at the umbilicus. Documented By: Lashonda Cortez MD, FACOG Subjective Doing well this morning, continue to have some pain. She was pumping, but has not had any success yet. Review of Systems Review of Systems: Denies fever, chills, sweats Denies shortness of breath, difficulty breathing, chest pain, palpitations, chest pressure. Denies breast pain. Denies dysuria. Denies headache. Physical Exam Physical Exam: General: Alert, oriented. No acute distress. Cardiac: Regular rate and rhythm, no murmurs/rubs/gallops. Respiratory: Clear to auscultation anterior and posteriorly, no wheezes/rales/rhonchi. No increased work of breathing. Symmetrical chest rise. No respiratory distress. Abdomen: Soft, nontender, nondistended. Bowel sounds present. Uterus: Uterine fundus firm, at the umbilicus. Lower Extremities: No lower extremity edema or swelling. No deep calf pain. Susy's negative bilaterally. Results & Data Vital Signs (Past 12 Hours) Vital Signs Temp Pulse Resp BP 02/02/19 03:45 36.5 C 73 18 120/62 02/02/19 00:00 36.8 C 73 18 111/58 L 02/01/19 23:48 73 111/58 L 02/01/19 21:26 78 108/59 L 02/01/19 21:25 36.8 C 78 18 108/59 L 02/01/19 20:30 36.8 C 77 18 109/68 02/01/19 19:25 36.8 C 81 20 113/55 L 02/01/19 19:23 81 113/55 L PG Care Time/CCT Total # of Minutes Spent Total Time Spent with Patient: Total time spent is greater than 50% in coordination of care (as documented) at patient's floor/unit and/or counseling patient: Resident Activity Tracking Resident Involvement: Resident Care Provided Care Provided: Adult Hospital Medicine
[2019-02-02 06:22] LABS: Partial Thromboplastin Ratio 1.3; Partial Thromboplastin Time 34.2 Seconds (21.0-31.0); Prothrombin Time 10.4 Seconds (9.0-12.0)
[2019-02-02 06:56] LABS: Albumin Globulin Ratio 0.6 (0.9-2); Albumin Level 1.7 gm/dl (3.4-5.0); BUN Creatinine Ratio 16.9 (10-20); Bilirubin,Total 0.4 mg/dl (0.2-1); Calcium 8.1 mg/dl (8.5-10.1); Creatinine Clr Calc Pharmacy 101.3 ml/min; Est GFR (African American) 107.5; Est GFR (Non-African American) 92.7; Globulin 2.9 gm/dl (2.5-4.0); Potassium 3.8 mmol/L (3.5-5.1); Total Protein 4.6 gm/dl (6.4-8.2)
[2019-02-02 06:59] LABS: Basophils # (auto) 0.04 K/uL (0-0.2); Basophils % (auto) 0.2 %; Eosinophils # (auto) 0.37 K/uL (0-0.5); Eosinophils % (auto) 1.5 %; Immature Granulocytes # (auto) 0.16 K/uL (0.00-0.02); Immature Granulocytes % (auto) 0.6 %; Lymphocytes % (auto) 12.2 %; Monocytes # (auto) 1.26 K/uL (0.11-0.59); Neutrophils # (auto) 20.48 K/uL (1.4-6.5); Neutrophils % (auto) 80.5 %; RBC Morphology Unremarkable
--- NOTE | 2019-02-02 07:46 | Anesthesia Procedure Note ---
Date of Service February 02, 2019 Anesthesia Post Epidural Note Vital Signs Vital Signs: Temp Pulse Resp BP Pulse Ox 36.5 C 73 18 120/77 100 02/02/19 03:45 02/02/19 07:38 02/02/19 03:45 02/02/19 07:33 02/02/19 07:38 Pain Intensity Bilateral Abdomen: Pain Intensity: 1 Notes Mental Status: alert / awake / arousable and participated in evaluation Nausea / Vomiting: adequately controlled Pain: adequately controlled Airway Patency, RR, SpO2: stable & adequate BP & HR: stable & adequate Hydration State: stable & adequate Neuraxial Anesthesia: was administered and sensory block resolved Anesthetic Complications: no major complications apparent and Pt Satisfied with anesthetic care Epidural: Removed without complications and With tip intact Notes: Called to evaluate catheter for tape being loose. On entering the room, the tip of the catheter was visible and already out of the skin. The site is clean, dry and intact without evidence of bleeding, bruising or edema. The patient is moving all extremities, is denying headache and denies back pain at this time. Instructed to contact us immediately for new onset back pain, numbness/tingling/or weakness in the legs, or new headache/vision changes. Patient verbalized understanding.
[2019-02-02] MEDS: OXYTOCIN 20 UNITS in LACTATED RINGER'S 1,000 ML IV SCH ×2 (08:05→14:02)
[2019-02-02] MEDS: PRENATAL VITAMIN 1 TAB PO SCH (08:08)
[2019-02-02] MEDS: DOCUSATE SODIUM 100 MG CAP PO SCH ×2 (08:08→20:34)
[2019-02-02] MEDS ORDERED: BISACODYL 5 MG TABEC PO SCH (20:00)
[2019-02-02] MEDS: OXYCODONE/ACETAMINOPHEN 5mg/325mg TAB PO PRN (20:35)
--- NOTE | 2019-02-03 06:53 | Obstetrical Progress Note ---
Date of Service February 03, 2019 Assessment & Plan (1) hemorrhage: 34 s/p @ 40.5 PPD#2 complicated by severe PPH, w/ Bacri removed Severe PPH - VSS, ambulating, urinating w/o difficulty - H&H stable - Bacri removed - continue to monitor VS and H&H - ordered PT, TSH, FT4, & Prolactin to evaluate for Devendra's syndrome PPD# 3 - GBS negative, Blood Type B+ - Feels well today. Eating well, voiding well, ambulating well. - Pain well controlled. - After discharge will have [address] Colin. Supervising Physician Co-Signing Physician Notes Resident Physician Supervision Note: I was present with Dr. Cruz during the history and exam. I discussed the case with the resident and agree with the findings and plan as documented in the note. Any exceptions or clarifications are listed here: [None] Documented By: Karey Archuleta MD, FACOG Subjective Doing well this morning, continue to have some pain. She was pumping, but has not had any success yet. She is not having any dizziness when standing. She is having some numbness and weakness in her left leg from knee to mid thigh, on the medial aspect. the numbness has occurred since she has been walking. Review of Systems Review of Systems: Denies fever, chills, sweats Denies shortness of breath, difficulty breathing, chest pain, palpitations, chest pressure. Denies breast pain. Denies dysuria. Denies headache. Physical Exam Physical Exam: General: Alert, oriented. No acute distress. Cardiac: Regular rate and rhythm, no murmurs/rubs/gallops. Respiratory: Clear to auscultation anterior and posteriorly, no wheezes/rales/rhonchi. No increased work of breathing. Symmetrical chest rise. No respiratory distress. Abdomen: Soft, nontender, nondistended. Bowel sounds present. Uterus: Uterine fundus firm, palpable 1 cm below umbilicus. Lower Extremities: No lower extremity edema or swelling. No deep calf pain. Susy's negative bilaterally. Results & Data Vital Signs (Past 12 Hours) Vital Signs Temp Pulse Resp BP Pulse Ox 02/03/19 04:00 37.0 C 80 18 121/78 02/02/19 20:00 36.5 C 87 18 136/85 97 PG Care Time/CCT Total # of Minutes Spent Total Time Spent with Patient: Total time spent is greater than 50% in coordination of care (as documented) at patient's floor/unit and/or counseling patient: Resident Activity Tracking Resident Involvement: Resident Care Provided Care Provided: Adult Hospital Medicine
[2019-02-03 07:20] LABS: Hematocrit (blood only) 20.9 % (37-47); Hemoglobin 7.5 g/dL (12.0-16.0); Mean Corpuscular Hemoglobin 32.8 pg (25-34); Mean Corpuscular Hgb Conc 35.9 g/dL (32-36); Mean Corpuscular Volume 91.3 fL (80-100); Mean Platelet Volume 9.5 fL (7.4-10.4); Platelet Count 212 K/uL (130-400); RDW Coefficient of Variation 15.3 % (11.5-14.5); RDW Standard Deviation 51.3 fL (36.4-46.3); Red Blood Count 2.29 M/uL (4.2-5.4); White Blood Count 17.74 K/uL (4.8-10.8)
[2019-02-03] MEDS: IBUPROFEN 600 MG TAB PO PRN ×2 (07:23→11:43)
[2019-02-03] MEDS: OXYCODONE/ACETAMINOPHEN 5mg/325mg TAB PO PRN ×2 (07:23→11:44)
[2019-02-03 07:27] LABS: Partial Thromboplastin Ratio 1.1; Partial Thromboplastin Time 28.5 Seconds (21.0-31.0)
[2019-02-03 07:55] LABS: Basophils # (auto) 0.04 K/uL (0-0.2); Basophils % (auto) 0.2 %; Eosinophils # (auto) 0.39 K/uL (0-0.5); Eosinophils % (auto) 2.2 %; Immature Granulocytes # (auto) 0.12 K/uL (0.00-0.02); Immature Granulocytes % (auto) 0.7 %; Lymphocytes # (auto) 3.23 K/uL (1.2-3.4); Lymphocytes % (auto) 18.2 %; Monocytes # (auto) 0.74 K/uL (0.11-0.59); Monocytes % (auto) 4.2 %; Neutrophils # (auto) 13.22 K/uL (1.4-6.5); Neutrophils % (auto) 74.5 %
[2019-02-03 08:03] LABS: Albumin Level 1.9 gm/dl (3.4-5.0); BUN Creatinine Ratio 17.1 (10-20); Calcium 8.1 mg/dl (8.5-10.1); Creatinine Clr Calc Pharmacy 102.6 ml/min; Est GFR (African American) 109.1; Est GFR (Non-African American) 94.1; Potassium 3.7 mmol/L (3.5-5.1)
[2019-02-03] MEDS: PRENATAL VITAMIN 1 TAB PO SCH (08:11)
[2019-02-03] MEDS: DOCUSATE SODIUM 100 MG CAP PO SCH (08:11)
[2019-02-03 08:14] LABS: Albumin Globulin Ratio 0.6 (0.9-2); Bilirubin,Total 0.3 mg/dl (0.2-1); Globulin 3.4 gm/dl (2.5-4.0); Thyroid Stimulating Hormone 8.27 uIu/ml (0.300-4.500); Total Protein 5.3 gm/dl (6.4-8.2)
[2019-02-03 08:29] LABS: T4 Free Thyroxine 1.08 ng/dl (0.8-1.6)
[2019-02-03 08:38] LABS: Cortisol AM 11.26 mcg/dl (4.3-22.4)
[2019-02-03] MEDS ORDERED: BISACODYL 10 MG SUPP PR PRN (09:00)
[2019-02-03 09:02] LABS: Prolactin 222.63 ng/ml
[2019-02-03 09:07] VITALS: O2SAT 96
[2019-02-03] MEDS: BENZOCAINE 20% AER SPR 82.5 GM CAN EXT PRN (11:29)
[2019-02-03 12:55] VITALS: BP 126/77; PULSE 83; TEMP 97.9
--- NOTE | 2019-02-05 13:02 | Coding Query ---
CODING QUERY To promote full compliance with coding requirements relating to patient care, provider participation is requested in all cases of remote medical coder uncertainty. Please assist us with the question(s) below: Please clarify the meaning of ISAAK. ISAAK is not a valid abbreviation. Thank you. ( X ) Acute Kidney Injury ( ) Acute Kidney Insufficiency ( ) Other (Specify): Principal Diagnosis: "that condition established after study, to be chiefly responsible for occasioning the admission of the patient to the hospital for care." Co-Existing Principal Diagnosis: "when two or more diagnoses equally meet the criteria for principal diagnosis as determined by the circumstances of admission, diagnostic work up, and/or therapy provided, and the Alphabetic Index, Tabular List, or another coding guideline does not provide sequencing direction, any one of the diagnoses may be sequenced first." "When the physician has documented what appears to be a current diagnosis in the body of the record, but has not included the diagnosis in the final diagnostic statement, the physician should be asked whether the diagnosis should be added." (Source Coding [facility] 2 QTR90. p3-4) MARIBEL
--- NOTE | 2019-02-06 06:53 | Discharge Summary ---
Date of Service February 06, 2019 Admission HPI Per Admitting Provider 34yo at 40.4 weeks GA. Present for IOL for post dates. Denying regular contractions, VB, or LOF. Good FM. complicated by AMA and small VSD. GBS negative Discharge Data Consultations 01/30/19 08:11 Consult Anesthesiology Stat 01/31/19 18:26 Consult Receptionist Stat 01/31/19 20:11 Consult Case Management - Discharge Planning Routine Hospital Course (1) hemorrhage: Patient was admitted for IOL due to postdates. was complicated by advanced maternal age and small VSD. Immediately after delivery, she had a severe hemorrhage and required 2 doses tranexamic acid, 2 doses methergine, 1 dose hemabate, 1 dose cytotec. Bakri balloon was placed, patient was transfused with 2u cryo and 2u PRBC and transferred to ICU for further monitoring. Bleeding stopped, Bakri balloon was slowly removed the following day. Patient recovered well after this and was discharged home on PPD#2. Please see notes from day of discharge for further details/eval from doctor that saw patient on day of discharge.
== END 2019-02-03 15:35 | disposition home or self-care (01) | DRG 768 ==
LOC: 4S1 07:26 → 1E 01-31 20:01 → 4S1 02-01 14:59 → 4S2 02-02 15:36